=== PATIENT | male | born 1980 | race Caucasian/White ===

== ENCOUNTER 2016-07-31 11:49 | Inpatient (IN) | payer OTHER ==
[~2016-07-31] VITALS: Ht 190.5 cm; Wt 171.0 kg
[~2016-07-31 11:49] MED LIST: 1-ME1LIQ PO; HYDR-2768 PO; LISI40TA PO; METF500 PO; MULTCHW12 PO; VITA200017 PO
[2016-07-31 11:50] VITALS: BP 211/112; PULSE 85; RESP 20; TEMP 98.4; O2SAT 98
--- NOTE | 2016-07-31 11:58 | PD ---
Physical Exam Date Seen by Provider: July 31, 2016 Time Seen by Provider: 11:56 Narrative 36 year old male presents to the emergency department for evaluation of left great toe infection. He states he went to Urgent Care on Tuesday and was given Clindamycin and Bactrim and has been taking them as prescribed. Symptoms are worsening. No fevers. Patient has history of DM. Vital signs reviewed. Patient seen in triage, awaiting bed placement. Data Data Last Documented VS Vital Signs Date Time Temp Pulse Resp B/P Pulse Ox O2 Delivery O2 Flow Rate FiO2 07/31/16 11:50 98.4 85 20 211/112 98 Room Air MDM Supervised Visit with MARCUS: Zahida Peralta July 31, 2016 11:58
[2016-07-31] MEDS ORDERED: METF500T PO (12:08)
[2016-07-31 12:22] LABS: BASOPHIL # 0.1 TH/MM3 (0-0.2); BASOPHIL % 0.8 % (0.0-2.0); EOSINOPHIL # 0.2 TH/MM3 (0-0.4); EOSINOPHIL % 1.8 % (0.0-4.0); HEMATOCRIT 42.8 % (39.0-51.0); HEMO FLAGS DIFF FINAL; LYMPH % 24.4 % (9.0-44.0); LYMPHOCYTE # 2.9 TH/MM3 (1.0-4.8); MEAN CELL VOLUME 81.1 FL (80.0-100.0); MEAN CORPUSCULAR HEMOGLOBIN 28.1 PG (27.0-34.0); MEAN CORPUSCULAR HGB CONC 34.6 % (32.0-36.0); MONO % 6.2 % (0.0-8.0); NEUT % 66.8 % (16.0-70.0); PLATELET COUNT 444 TH/MM3 (150-450); RED BLOOD COUNT 5.27 MIL/MM3 (4.50-5.90); RED CELL DISTRIBUTION WIDTH 13.4 % (11.6-17.2)
[2016-07-31 12:37] LABS: ALT (GPT) 54 U/L (12-78); ANION GAP 7 MEQ/L (5-15); AST (GOT) 36 U/L (15-37); BLOOD UREA NITROGEN 14 MG/DL (7-18); CHLORIDE 103 MEQ/L (98-107); GLOMERULAR FILTRATION RATE 93 ML/MIN (>89); POTASSIUM 4.7 MEQ/L (3.5-5.1); SODIUM (NA) 136 MEQ/L (136-145)
[2016-07-31 12:38] LABS: ALKALINE PHOSPHATASE 104 U/L (45-117); TOTAL BILIRUBIN ADULT 0.3 MG/DL (0.2-1.0)
--- NOTE | 2016-07-31 12:52 | RADRPT ---
EXAM DATE/TIME: 07/31/2016 12:31 [facility] COMPARISON: No previous studies available for comparison. INDICATIONS : Patient complains of pain in left great toe. States may have possible infection. Pain and swelling to left great toe. MEDICAL HISTORY : None. SURGICAL HISTORY : None. ENCOUNTER: Initial ACUITY: 1 day PAIN SCORE: 5/10 LOCATION: Left Foot FINDINGS: Three view examination of the left foot demonstrates no dislocation or fracture. There is soft tissu e swelling over the first digit. The tarsal bones appear intact. The interphalangeal and metatarsoph alangeal joints are intact. The calcaneus is intact. Bony mineralization is normal. CONCLUSION: Soft tissue swelling over the first digit with no destructive change or radiopaque fo reign body. Fabricio Bautista MD on July 31, 2016 at 12:48 Board Certified Radiologist. This report was verified electronically.
--- NOTE | 2016-07-31 14:25 | PD ---
HPI Chief Complaint: Wound/Suture/Staple Re-Check Time Seen by Provider: 14:17 Travel History International Travel<30 days: No Contact w/Intl Traveler<30days: No Traveled to known affect area: No History of Present Illness HPI This is a 36-year-old male with history of hypertension, diabetes who presents for evaluation of left great toe pain. He reports that 3 weeks ago he developed an ulcer on the left toe. He reports over the past week he developed redness and pain associated with the toe. He was seen at an urgent care center 5 days ago and prescribed Bactrim and clindamycin. Symptoms worsened and he returned to the urgent care center today who referred him here for further treatment. He denies any trauma to the toe. He denies any fevers, chills, leg pain. He has no other complaints at this time. [facility] Past Medical History Cardiovascular Problems: Yes Diabetes: Yes Patient Takes Glucophage: Yes Hypertension: Yes Immunizations Current: Yes Influenza Vaccination: No Past Surgical History Surgical History: No Previous Surgery Social History Alcohol Use: No Tobacco Use: No Substance Use: No Allergies-Medications (Allergen,Severity, Reaction): Coded Allergies: No Known Allergies (Unverified , 07/31/16) Reported Meds & Prescriptions Reported Meds & Active Scripts Active Reported Metformin (Metformin HCl) 500 Mg Tab 500 Mg PO DAILY With a meal Review of Systems Except as stated in HPI: all other systems reviewed are Neg Physical Exam Narrative GENERAL: Well-developed well-nourished male in no acute distress SKIN: Warm and dry. Significant ulceration of the skin is noted to be dorsal and plantar aspect of the left great toe with associated erythema, some purulent drainage noted. Generalized tenderness to palpation. No proximal streaking. HEAD: Atraumatic. Normocephalic. EYES: Pupils equal and round. No scleral icterus. No injection or drainage. ENT: No nasal bleeding or discharge. Mucous membranes pink and moist. NECK: Trachea midline. No JVD. CARDIOVASCULAR: Regular rate and rhythm. No murmur appreciated. RESPIRATORY: No accessory muscle use. Clear to auscultation. Breath sounds equal bilaterally. GASTROINTESTINAL: Abdomen soft, non-tender, nondistended. MUSCULOSKELETAL: No obvious deformities. Skin as noted above. 2+ dorsalis pedis, posterior tibial pulses. No inguinal lymphadenopathy. NEUROLOGICAL: Awake and alert. No obvious cranial nerve deficits. Motor grossly within normal limits. Normal speech. Data Data Last Documented VS Vital Signs Date Time Temp Pulse Resp B/P Pulse Ox O2 Delivery O2 Flow Rate FiO2 07/31/16 11:50 98.4 85 20 211/112 98 Room Air Orders Complete Blood Count With Diff (07/31/16 12:00) Comprehensive Metabolic Panel (07/31/16 12:00) Westergren Sedimentation Rate (07/31/16 12:00) C-Reactive Protein (Crp) (07/31/16 12:00) Foot, Complete ([id number]) (07/31/16 ) Lactic Acid Sepsis Protocol (07/31/16 14:29) Blood Culture (07/31/16 14:29) Wound Culture And Gram Stain (07/31/16 14:29) Iv Access Insert/Monitor (07/31/16 14:29) Sodium Chlor 0.9% 1000 Ml Inj (Ns 1000 M (07/31/16 14:29) Labetalol Inj (Trandate Inj) (07/31/16 14:30) Vancomycin Inj (Vancomycin Inj) (07/31/16 14:30) Piperacil-Tazo 3.375 Gm Premix (Zosyn 3. (07/31/16 14:30) Labs Laboratory Tests Test 07/31/16 07/31/16 12:00 14:35 White Blood Count 12.0 TH/MM3 Red Blood Count 5.27 MIL/MM3 Hemoglobin 14.8 GM/DL Hematocrit 42.8 % Mean Corpuscular Volume 81.1 FL Mean Corpuscular Hemoglobin 28.1 PG Mean Corpuscular Hemoglobin 34.6 % Concent Red Cell Distribution Width 13.4 % Platelet Count 444 TH/MM3 Mean Platelet Volume 7.6 FL Neutrophils (%) (Auto) 66.8 % Lymphocytes (%) (Auto) 24.4 % Monocytes (%) (Auto) 6.2 % Eosinophils (%) (Auto) 1.8 % Basophils (%) (Auto) 0.8 % Neutrophils # (Auto) 8.0 TH/MM3 Lymphocytes # (Auto) 2.9 TH/MM3 Monocytes # (Auto) 0.7 TH/MM3 Eosinophils # (Auto) 0.2 TH/MM3 Basophils # (Auto) 0.1 TH/MM3 CBC Comment DIFF FINAL Differential Comment Erythrocyte Sedimentation Rate 33 mm/hr Sodium Level 136 MEQ/L Potassium Level 4.7 MEQ/L Chloride Level 103 MEQ/L Carbon Dioxide Level 26.0 MEQ/L Anion Gap 7 MEQ/L Blood Urea Nitrogen 14 MG/DL Creatinine 0.93 MG/DL Estimat Glomerular Filtration 93 ML/MIN Rate Random Glucose 249 MG/DL Calcium Level 9.0 MG/DL Total Bilirubin 0.3 MG/DL Aspartate Amino Transf 36 U/L (AST/SGOT) Alanine Aminotransferase 54 U/L (ALT/SGPT) Alkaline Phosphatase 104 U/L C-Reactive Protein 4.00 MG/DL Total Protein 8.1 GM/DL Albumin 3.3 GM/DL Lactic Acid Level 1.3 mmol/L [facility] Medical Decision Making Medical Screen Exam Complete: Yes Emergency Medical Condition: Yes Medical Record Reviewed: Yes Differential Diagnosis Diabetic foot ulcer, cellulitis failed outpatient therapy, osteomyelitis, necrotizing fasciitis Narrative Course 36-year-old male with diabetes presents with left great toe infection, he is ulcerations for 3 weeks, worsening pain and redness for 1 week, worsening despite 5 days treatment of Bactrim and clindamycin. Ultimately the patient is being admitted for cellulitis fell outpatient therapy, diabetic foot ulcer. He was hypertensive initially in triage. He was given IV labetalol and his blood pressures come down to 146/76. He was given broad-spectrum antibiotics, IV fluids. Discussed with Dr. Rahman who is agreeable with admission. Diagnosis Primary Impression: Cellulitis of left foot Additional Impression: Diabetic foot ulcer Qualified Code: E13.621 - Diabetic ulcer of toe of left foot associated with diabetes mellitus of other type, unspecified ulcer stage Admitting Information Admitting Physician Requests: Admit Charles Rojo July 31, 2016 14:25
[2016-07-31] MEDS ORDERED: SODIUM CHLOR 0.9% 1000 ML INJ 1,000 ML IV SCH (14:29)
[2016-07-31] MEDS ORDERED: LABETALOL HCL 100 MG/20 ML VIAL IV PUSH ONE (14:30)
[2016-07-31] MEDS ORDERED: PIPERACIL-TAZO 3.375 GM PREMIX 50 ML IV ONE (14:30)
[2016-07-31] MEDS ORDERED: VANCOMYCIN INJ 1,000 MG in SODIUM CHLOR 0.9% 250 ML INJ 250 ML IV ONE (14:30)
[2016-07-31] MEDS ORDERED: GLUCAGON 1 MG/ML VIAL OTHER PRN (17:30)
[2016-07-31] MEDS ORDERED: DEXTROSE 50% IN WATER 50 ML VIAL(D50) IV PUSH PRN (17:30)
[2016-07-31 17:54] VITALS: BP_SYST 67; PULSE 80
--- NOTE | 2016-07-31 18:04 | HHI.HP ---
HPI Service [facility] Hospitalists Primary Care Physician Non-Staff Admission Diagnosis cellulitis Failed outpatient therapy, diabetic foot ulcer Chief Complaint: toe infection Travel History International Travel<30 Days: No Contact w/Intl Traveler <30 Da: No Traveled to Known Affected Are: No History of Present Illness Pt is 36 yo male who presents with left great toe infection. Says he just joined with [facility] [place] [facility] and has not seen his pcp. Reports being diagnosed last yr with dm 2 but doesn't monitor it. 3 weeks ago he noticed a dime size ulceration on planter aspect of left great toe. This was in the area of a callus. Then earlier this week he notice redness on dorsal aspect of the great toe 4 days ago. He was started on bactrim and clinda. Then skin sloughed off and dorsal aspect ulcerated as well. no f/c or rigors. no n/v/d reported. Review of Systems Other left great toe infection/ulcers Past Family Social History Past Medical History dm 2. dx last yr ...doesn't monitor htn. stopped his meds months ago. obesity broke left tib/fib..no hardware Reported Medications Metformin (Metformin HCl) 500 Mg Tab 500 Mg PO DAILY With a meal stopped an unknown dose of lisinipril months ago. ran out. Allergies: Coded Allergies: No Known Allergies (Unverified , 07/31/16) Family History dm Social History no etoh/tob Physical Exam Vital Signs heent neg heart reg lung cta abd /snt ext chronic ant barajas redness from prior fx left left great toe with plantar callous with dime size ulceration. dorsally ulcerated and erythematous purelent discharge. Vital Signs Date Time Temp Pulse Resp B/P Pulse Ox O2 Delivery O2 Flow Rate FiO2 07/31/16 11:50 98.4 85 20 211/112 98 Room Air Laboratory Laboratory Tests Test 07/31/16 07/31/16 12:00 14:35 White Blood Count 12.0 Red Blood Count 5.27 Hemoglobin 14.8 Hematocrit 42.8 Mean Corpuscular Volume 81.1 Mean Corpuscular Hemoglobin 28.1 Mean Corpuscular Hemoglobin 34.6 Concent Red Cell Distribution Width 13.4 Platelet Count 444 Mean Platelet Volume 7.6 Neutrophils (%) (Auto) 66.8 Lymphocytes (%) (Auto) 24.4 Monocytes (%) (Auto) 6.2 Eosinophils (%) (Auto) 1.8 Basophils (%) (Auto) 0.8 Neutrophils # (Auto) 8.0 Lymphocytes # (Auto) 2.9 Monocytes # (Auto) 0.7 Eosinophils # (Auto) 0.2 Basophils # (Auto) 0.1 CBC Comment DIFF FINAL Differential Comment Erythrocyte Sedimentation Rate 33 Sodium Level 136 Potassium Level 4.7 Chloride Level 103 Carbon Dioxide Level 26.0 Anion Gap 7 Blood Urea Nitrogen 14 Creatinine 0.93 Estimat Glomerular Filtration 93 Rate Random Glucose 249 Calcium Level 9.0 Total Bilirubin 0.3 Aspartate Amino Transf 36 (AST/SGOT) Alanine Aminotransferase 54 (ALT/SGPT) Alkaline Phosphatase 104 C-Reactive Protein 4.00 Total Protein 8.1 Albumin 3.3 Lactic Acid Level 1.3 Date/Time Procedure Status Source Growth 07/31/16 14:35 Gram Stain Received Wound Foot Pending 07/31/16 14:35 Wound Culture Received Wound Foot Pending 07/31/16 14:30 Aerobic Blood Culture Received Blood Peripheral Pending 07/31/16 14:30 Anaerobic Blood Culture Received Blood Peripheral Pending Result Diagram: 07/31/16 1200 07/31/16 1200 Assessment and Plan Problem List: (1) Diabetic foot ulcer Status: Acute Plan: Pt is 36 yo dm 2 and htn. developed left great toe plantar ulcer then dorsally ulcerated with cellulitis. concern for osteo and needs ruled out. failed bactrim and clinda severe htn on presentation. ED initiated iv zosyn/vanco blood and wound cx taken consult podiatry regarding the toe ulcerations mri foot to eval osteo ssi. adjust dm as needed. hgba1c. needs f/u. resume bella and titrate as needed dvt prophylaxis. (2) Cellulitis of left foot Status: Acute Plan: see above (3) DM (diabetes mellitus) Status: Chronic Plan: see above (4) HTN (hypertension) Status: Acute Plan: see above Physician Certification 2 Midnight Certification Type: Admission for Inpatient Services Order for Inpatient Services 3The services are ordered in accordance with Medicare regulations or non- Medicare payer requirements, as applicable. In the case of services not specified as inpatient-only, they are appropriately provided as inpatient services in accordance with the 2-midnight benchmark. Estimated LOS (days): 3 3 days is the estimated time the patient will need to remain in the hospital, assuming treatment plan goals are met and no additional complications. Post-Hospital Plan: Home Problem Qualifiers (1) Diabetic foot ulcer: Qualified Code: E13.621 - Diabetic ulcer of toe of left foot associated with diabetes mellitus of other type, unspecified ulcer stage Duong Branham MD July 31, 2016 18:04
[2016-07-31] MEDS ORDERED: cloNIDine HCL 0.1 MG TAB PO PRN (18:15)
[2016-07-31] MEDS ORDERED: ACETAMINOPHEN 325 MG TAB PO PRN (18:15)
[2016-07-31] MEDS ORDERED: Vancomycin Consult Pharmacy 1 EA OTHER SCH (18:15)
[2016-07-31] MEDS ORDERED: ENALAPRILAT 1.25 MG/ML VIAL IV PUSH PRN (18:15)
[2016-07-31] MEDS ORDERED: ONDANSETRON HCL 4 MG/2 ML VIAL IV PUSH PRN (18:15)
[2016-07-31 18:37] VITALS: BP 138/76; PULSE 88
[2016-07-31] MEDS ORDERED: GADODIAMIDE PF 287 MG/ML 10 ML VIAL (for RAD MRI) IV ONE (19:49)
--- NOTE | 2016-07-31 20:26 | RADRPT ---
EXAM DATE/TIME: 07/31/2016 19:28 [facility] COMPARISON: No previous studies available for comparison. INDICATIONS : Osteomyelitis. CONTRAST: cc Omniscan (gadodiamide) IV MEDICAL HISTORY : Hypertension. Diabetes mellitus type 2. SURGICAL HISTORY : None. ENCOUNTER: Initial ACUITY: 1 day PAIN SCORE: 0/10 LOCATION: Left foot TECHNIQUE: Multiplanar, multisequence MRI examination was performed without contrast and after the intravenous a dministration of gadolinium. FINDINGS: There is abnormal marrow edema and no proximal and distal phalanx of the great associated with an ulc eration and extensive surrounding cellulitis and edema characteristic of osteomyelitis although great toe. The other toes appear intact. No extension to the metatarsals is identified. CONCLUSION: 1. Osteomyelitis of both the proximal and distal phalanx of the great toe associated with an ulcerati on and surrounding cellulitis. There is edema predominantly in the forefoot. No other foci of osteomy elitis identified. No abnormal fluid collections to suggest abscess. Eliezer Long MD on July 31, 2016 at 20:19 Board Certified Radiologist. This report was verified electronically.
[2016-07-31] MEDS: INSULIN ASPART SUPPLEMENTAL SCALE SQ SCH (21:00)
[2016-07-31 21:30] VITALS: BP 135/69; PULSE 83; RESP 18; TEMP 96.6; O2SAT 96
[2016-07-31] MEDS: LISINOPRIL 5 MG TAB PO SCH (21:50)
[2016-07-31] MEDS: VANCOMYCIN INJ 2,000 MG in SODIUM CHLORID 0.9% 500 ML INJ 500 ML IV SCH (21:54)
[2016-07-31] MEDS: PIPERACIL-TAZO 3.375 GM PREMIX 50 ML IV SCH (21:54)
[2016-08-01] VITALS: BP 128/63; PULSE 78; RESP 18; TEMP 96.3; O2SAT 96
[2016-08-01] MEDS: PIPERACIL-TAZO 3.375 GM PREMIX 50 ML IV SCH ×4 (03:08→21:22)
[2016-08-01 04:00] VITALS: BP 139/88; PULSE 77; RESP 18; TEMP 97.1; O2SAT 98
[2016-08-01] MEDS: INSULIN ASPART SUPPLEMENTAL SCALE SQ SCH ×4 (06:02→21:00)
[2016-08-01 07:55] LABS: AUTOMATED NEUTROPHIL # 8.1 TH/MM3 (1.8-7.7); BASOPHIL # 0.1 TH/MM3 (0-0.2); BASOPHIL % 0.7 % (0.0-2.0); EOSINOPHIL # 0.2 TH/MM3 (0-0.4); EOSINOPHIL % 1.6 % (0.0-4.0); HEMATOCRIT 41.8 % (39.0-51.0); HEMO FLAGS DIFF FINAL; LYMPHOCYTE # 2.9 TH/MM3 (1.0-4.8); MEAN CELL VOLUME 82.2 FL (80.0-100.0); MEAN CORPUSCULAR HEMOGLOBIN 27.3 PG (27.0-34.0); MEAN CORPUSCULAR HGB CONC 33.2 % (32.0-36.0); MONO % 6.5 % (0.0-8.0); NEUT % 67.2 % (16.0-70.0); PLATELET COUNT 390 TH/MM3 (150-450); RED BLOOD COUNT 5.08 MIL/MM3 (4.50-5.90); RED CELL DISTRIBUTION WIDTH 13.2 % (11.6-17.2); WHITE BLOOD COUNT 12.1 TH/MM3 (4.0-11.0)
[2016-08-01 08:00] VITALS: BP 133/79; PULSE 81; RESP 20; TEMP 96.6; O2SAT 97
[2016-08-01 08:21] LABS: ANION GAP 7 MEQ/L (5-15); BLOOD UREA NITROGEN 12 MG/DL (7-18); CHLORIDE 104 MEQ/L (98-107); GLOMERULAR FILTRATION RATE 119 ML/MIN (>89); SODIUM (NA) 139 MEQ/L (136-145)
[2016-08-01] MEDS: VANCOMYCIN INJ 2,000 MG in SODIUM CHLORID 0.9% 500 ML INJ 500 ML IV SCH ×2 (08:28→21:23)
[2016-08-01] MEDS: LISINOPRIL 5 MG TAB PO SCH ×2 (08:28→21:23)
--- NOTE | 2016-08-01 11:36 | MB ---
cc: RUTHANN PITTS DPM DATE OF CONSULTATION: 08/01/2016 DATE OF : 1980 REASON FOR CONSULTATION: Left hallux infection. HISTORY OF PRESENT ILLNESS: The patient is a 36 year-old male who states that he has a three week old wound to the left toe. He has a history of two years of diabetes but only obtained insurance in the last four months. He does not monitor his blood sugar. He has provided no treatment to his left toe and continued to work on it. He was started on Bactrim and clinda four days ago as an outpatient. No nausea, vomiting, fever, diarrhea, chills. REVIEW OF SYSTEMS: Six point review of systems unremarkable. PAST MEDICAL HISTORY: 1. Diabetes x2 years. 2. Hypertension. He stopped his meds about a month ago. 3. Broken tibia, left tib-fib. 4. Obesity. REPORTED MEDICATIONS: Metformin. ALLERGIES: NKDA. SOCIAL HISTORY: Denies alcohol, tobacco. PHYSICAL EXAMINATION: Dorsal ulceration 1 x 2 cm at the left hallux, as well as a plantar hallux ulceration of 1.5 x 0.5 with 0.5 in depth. There is serous drainage. There is no crepitus or inflammation, no pain on range of motion. Mild erythema at the dorsal aspect of the toe. There is some chronic swelling on the left hallux. There is no streaking noted. Hair growth distally DP and PT palpable. WBC on 08/01/2016 of 12.1, RBC of 5.08, H&H 13.9 and 41.8. ESR 33. IMAGING STUDIES Left foot MRI completed 07/31/2016 with osteomyelitis extending through the proximal and distal phalanx with surrounding erythema. This was evaluated by Dr. Long on July 31, 2016. ASSESSMENT/PLAN 1. Left hallux osteomyelitis. 2. Left hallux ulceration. 3. DM with neuropathy. I recommended a left hallux amputation with possible proximal first ray amputation. I did discuss the risks and benefits, pros and cons with the patient including modification of shoe gear, custom inserts as well as deviating the left second digit, possible additional surgery and future ulcerations. The patient stated that he wanted to consider IV antibiotics and will discuss with his family. I did discuss that he will need daily IV antibiotics, walking boot to offload the left foot as well as weekly wound care with podiatry. All questions were answered. Will continue to follow the patient while in-house, pending his decision on amputation versus IV antibiotics. Dr. Meier will be assuming coverage on 08/02/2016. Ruthann Pitts DPM SR/STEPHANIE /10:13 AM /11:26 AM
[2016-08-01 12:00] VITALS: BP 142/91; PULSE 86; RESP 20; TEMP 96.7; O2SAT 96
--- NOTE | 2016-08-01 12:50 | HHI.PR ---
Subjective Remarks feels the toe is less angry and red. Objective Vitals heart reg lung cta abd s/nt ext left great toe swollen. less angry red, dorsal and plantar ulceration. drainage resolving. Vital Signs Date Time Temp Pulse Resp B/P Pulse Ox O2 Delivery O2 Flow Rate FiO2 08/01/16 12:00 96.7 86 20 142/91 96 08/01/16 08:00 96.6 81 20 133/79 97 08/01/16 04:00 97.1 77 18 139/88 98 08/01/16 00:00 96.3 78 18 128/63 96 07/31/16 21:30 96.6 83 18 135/69 96 07/31/16 18:37 88 138/76 07/31/16 17:54 80 67/ Result Diagram: 08/01/16 0700 08/01/16 0700 A/P Problem List: (1) Osteomyelitis Status: Acute Plan: Pt is 36 yo dm 2 and htn. developed left great toe plantar ulcer then dorsally ulcerated with cellulitis. mri confirmed osteomyelitis. failed bactrim and clinda severe htn on presentation. ED initiated iv zosyn/vanco. continue until wound cx available and modify as needed blood and wound cx taken consulted podiatry ssi. adjust dm as needed. hgba1c. needs f/u. resume bella and titrate as needed dvt prophylaxis. (2) Diabetic foot ulcer Status: Acute Plan: see above (3) Cellulitis of left foot Status: Acute Plan: see above (4) DM (diabetes mellitus) Status: Chronic Plan: see above (5) HTN (hypertension) Status: Acute Plan: see above Problem Qualifiers (1) Diabetic foot ulcer: Qualified Code: E13.621 - Diabetic ulcer of toe of left foot associated with diabetes mellitus of other type, unspecified ulcer stage Duong Branham MD August 01, 2016 12:50
[2016-08-01 16:00] VITALS: BP 138/105; PULSE 84; RESP 20; TEMP 97.4; O2SAT 97
[2016-08-01] MEDS ORDERED: PHARMACY ORDERED LAB ONE (20:45)
[2016-08-01 22:57] VITALS: BP 158/86; PULSE 86; RESP 20; TEMP 97.4; O2SAT 96
[2016-08-02] MEDS: PIPERACIL-TAZO 3.375 GM PREMIX 50 ML IV SCH ×4 (02:49→20:56)
[2016-08-02 04:00] VITALS: BP 136/72; PULSE 84; RESP 20; TEMP 97.5; O2SAT 96
[2016-08-02] MEDS: INSULIN ASPART SUPPLEMENTAL SCALE SQ SCH ×4 (07:00→20:59)
[2016-08-02] MEDS: VANCOMYCIN INJ 2,500 MG in SODIUM CHLORID 0.9% 500 ML INJ 500 ML IV SCH ×2 (07:08→18:01)
[2016-08-02 08:14] VITALS: BP 138/94; PULSE 78; RESP 20; TEMP 96.7; O2SAT 97
--- NOTE | 2016-08-02 08:53 | PD.POD ---
Subjective Pain score: 0 Remarks Refusing amp of hallux, wants to try digit salvage options Past Med/Surg/Social History Past Medical History Cardiovascular: REPORTS HX OF: Hypertension Past Surgical History HEENT: DENIES HX OF: Cataract extraction, Dental surgery, Laryngectomy, Tonsillectomy, Other head surgery, Other eye surgery, Other ear surgery, Other nasal surgery, Other throat surgery Endocrine: DENIES HX OF: Parathyroidectomy, Thyroid surgery, Other endocrine surgery Respiratory: DENIES HX OF: Bronchoscopy, Lobectomy, Other chest surgery Cardiovascular: DENIES HX OF: Angiogram, Angioplasty, CABG surgery, Carotid endarterectomy, Coronary stent, Heart transplant, Pacemaker, Valve replacement, Other cardiac surgery Gastrointestinal: DENIES HX OF: Appendectomy, Cholecystectomy, Colectomy, subtotal, Colectomy, total, Gastric bypass, Hernia repair, Splenectomy, Other GI surgery Genitourinary: DENIES HX OF: Bladder surgery, Kidney stone extraction, Nephrectomy, Other surgery Genitourinary - male: DENIES HX OF: Prostatectomy, TURP, Vasectomy Musculoskeletal: DENIES HX OF: Joint replacement, Other musculoskeletal srg Integumentary: DENIES HX OF: Skin cancer removal, Other integumentary surg Neurologic: DENIES HX OF: Craniotomy, Spinal surgery, Other neurologic surgery Breast: DENIES HX OF: Breast biopsy, Lumpectomy, Mastectomy, bilateral, Mastectomy, left, Mastectomy, right, Other breast surgery Social History Smoking Status: Never Smoker Objective Vital Signs Vital Signs Date Time Temp Pulse Resp B/P Pulse Ox O2 Delivery O2 Flow Rate FiO2 08/02/16 08:14 96.7 78 20 138/94 97 08/02/16 04:00 97.5 84 20 136/72 96 08/01/16 22:57 97.4 86 20 158/86 96 08/01/16 16:00 97.4 84 20 138/105 97 08/01/16 12:00 96.7 86 20 142/91 96 Coded Allergies: No Known Allergies (Unverified , 07/31/16) Medications and IVs Administered Medications Medications (Trade) Dose Ordered Sig/Juan Luis Route PRN Reason Start Time Stop Time Status Last Admin Dose Admin Piperacillin Sod/ Tazobactam Sod (Zosyn 3.375 Gm Premix) 50 ml @ 100 mls/hr Q6H IV 07/31/16 21:00 08/02/16 02:49 Lisinopril 5 mg 5 mg Q12HR PO 07/31/16 21:00 08/01/16 21:23 Vancomycin HCl/ Sodium Chloride (Vancomycin Inj/ NS 500 ml Inj) 525 ml @ 250 mls/hr Q12H IV 08/02/16 06:00 08/02/16 07:08 Other Results Laboratory Tests Test 07/31/16 08/01/16 12:00 07:00 White Blood Count 12.0 TH/MM3 12.1 TH/MM3 Red Blood Count 5.27 MIL/MM3 5.08 MIL/MM3 Hemoglobin 14.8 GM/DL 13.9 GM/DL Hematocrit 42.8 % 41.8 % Mean Corpuscular Volume 81.1 FL 82.2 FL Mean Corpuscular Hemoglobin 28.1 PG 27.3 PG Mean Corpuscular Hemoglobin 34.6 % 33.2 % Concent Red Cell Distribution Width 13.4 % 13.2 % Platelet Count 444 TH/MM3 390 TH/MM3 Mean Platelet Volume 7.6 FL 7.8 FL Neutrophils (%) (Auto) 66.8 % 67.2 % Lymphocytes (%) (Auto) 24.4 % 24.0 % Monocytes (%) (Auto) 6.2 % 6.5 % Eosinophils (%) (Auto) 1.8 % 1.6 % Basophils (%) (Auto) 0.8 % 0.7 % Neutrophils # (Auto) 8.0 TH/MM3 8.1 TH/MM3 Lymphocytes # (Auto) 2.9 TH/MM3 2.9 TH/MM3 Monocytes # (Auto) 0.7 TH/MM3 0.8 TH/MM3 Eosinophils # (Auto) 0.2 TH/MM3 0.2 TH/MM3 Basophils # (Auto) 0.1 TH/MM3 0.1 TH/MM3 CBC Comment DIFF FINAL DIFF FINAL Differential Comment Erythrocyte Sedimentation Rate 33 mm/hr Laboratory Tests Test 07/31/16 07/31/16 08/01/16 12:00 14:35 07:00 Sodium Level 136 MEQ/L 139 MEQ/L Potassium Level 4.7 MEQ/L 4.0 MEQ/L Chloride Level 103 MEQ/L 104 MEQ/L Carbon Dioxide Level 26.0 MEQ/L 28.0 MEQ/L Anion Gap 7 MEQ/L 7 MEQ/L Blood Urea Nitrogen 14 MG/DL 12 MG/DL Creatinine 0.93 MG/DL 0.75 MG/DL Estimat Glomerular Filtration 93 ML/MIN 119 ML/MIN Rate Random Glucose 249 MG/DL 154 MG/DL Calcium Level 9.0 MG/DL 8.9 MG/DL Total Bilirubin 0.3 MG/DL Aspartate Amino Transf 36 U/L (AST/SGOT) Alanine Aminotransferase 54 U/L (ALT/SGPT) Alkaline Phosphatase 104 U/L C-Reactive Protein 4.00 MG/DL Total Protein 8.1 GM/DL Albumin 3.3 GM/DL Lactic Acid Level 1.3 mmol/L Microbiology Date/Time Procedure Status Source Growth 07/31/16 14:10 Aerobic Blood Culture - Preliminary Resulted Blood Peripheral NO GROWTH IN 1 DAY 07/31/16 14:10 Anaerobic Blood Culture - Preliminary Resulted Blood Peripheral NO GROWTH IN 1 DAY 07/31/16 14:30 Aerobic Blood Culture - Preliminary Resulted Blood Peripheral NO GROWTH IN 1 DAY 07/31/16 14:30 Anaerobic Blood Culture - Preliminary Resulted Blood Peripheral NO GROWTH IN 1 DAY 07/31/16 14:35 Gram Stain - Final Resulted Wound Foot 07/31/16 14:35 Wound Culture - Preliminary Resulted Gram Negative Marky Last 72 hours Impressions Foot X-Ray 07/31/16 0000 Signed Impressions: Service Date/Time: Sunday, July 31, 2016 12:31 - CONCLUSION: Soft tissue swelling over the first digit with no destructive change or radiopaque foreign body. Fabricio Bautista MD Foot MRI 07/31/16 0000 Signed Impressions: Service Date/Time: Sunday, July 31, 2016 19:28 - CONCLUSION: 1. Osteomyelitis of both the proximal and distal phalanx of the great toe associated with an ulceration and surrounding cellulitis. There is edema predominantly in the forefoot. No other foci of osteomyelitis identified. No abnormal fluid collections to suggest abscess. Eliezer Long MD Physical Exam Remarks Dorsal ulceration 1 x 2 cm at the left hallux, as well as a plantar hallux ulceration of 1.5 x 0.5 with 0.5 in depth. There is serous drainage. There is no crepitus or inflammation, no pain on range of motion. Mild erythema at the dorsal aspect of the toe. There is some chronic swelling on the left hallux. There is no streaking noted. Hair growth distally DP and PT palpable. Assessment & Plan A/P Left hallux ulcer OM with cellulitis. Will proceed with bone biopsy and ulcer debridement tomorrow. Will need intermediate accountant IV ABX once OM and bacteria confirmed. Explained with poor DM control and the extent and the extent of infection; risks of hallux amp may be needed. He does not want amp at this point. Will attempt digit salvage, NPO for tomorrow surgery. Conor Meier DPM August 02, 2016 08:53
[2016-08-02] MEDS: LISINOPRIL 5 MG TAB PO SCH ×2 (09:10→20:56)
[2016-08-02 11:09] LABS: HEMOGLOBIN A1b 1.9 %; HEMOGLOBIN Ao 83.1 %; HEMOGLOBIN LA1C 1.7 %; HEMOGLOBIN P3 3.7 %
[2016-08-02 12:56] VITALS: BP 167/94; PULSE 82; RESP 20; TEMP 96.6; O2SAT 94
--- NOTE | 2016-08-02 15:31 | HHI.PR ---
Subjective Remarks No new complaints. Objective Vitals Vital Signs Date Time Temp Pulse Resp B/P Pulse Ox O2 Delivery O2 Flow Rate FiO2 08/02/16 12:56 96.6 82 20 167/94 94 08/02/16 08:14 96.7 78 20 138/94 97 08/02/16 04:00 97.5 84 20 136/72 96 08/01/16 22:57 97.4 86 20 158/86 96 08/01/16 16:00 97.4 84 20 138/105 97 08/01/16 08/01/16 08/02/16 15:00 23:00 07:00 Intake Total 480 ml Balance 480 ml Intake Oral 480 ml # Voids 3 1 # Bowel Movements 1 Result Diagram: 08/01/16 0708/01/16 07 Other Results Laboratory Tests Test 08/01/16 08/01/16 07:00 21:40 White Blood Count 12.1 TH/MM3 Red Blood Count 5.08 MIL/MM3 Hemoglobin 13.9 GM/DL Hematocrit 41.8 % Mean Corpuscular Volume 82.2 FL Mean Corpuscular Hemoglobin 27.3 PG Mean Corpuscular Hemoglobin 33.2 % Concent Red Cell Distribution Width 13.2 % Platelet Count 390 TH/MM3 Mean Platelet Volume 7.8 FL Neutrophils (%) (Auto) 67.2 % Lymphocytes (%) (Auto) 24.0 % Monocytes (%) (Auto) 6.5 % Eosinophils (%) (Auto) 1.6 % Basophils (%) (Auto) 0.7 % Neutrophils # (Auto) 8.1 TH/MM3 Lymphocytes # (Auto) 2.9 TH/MM3 Monocytes # (Auto) 0.8 TH/MM3 Eosinophils # (Auto) 0.2 TH/MM3 Basophils # (Auto) 0.1 TH/MM3 CBC Comment DIFF FINAL Differential Comment Sodium Level 139 MEQ/L Potassium Level 4.0 MEQ/L Chloride Level 104 MEQ/L Carbon Dioxide Level 28.0 MEQ/L Anion Gap 7 MEQ/L Blood Urea Nitrogen 12 MG/DL Creatinine 0.75 MG/DL Estimat Glomerular Filtration 119 ML/MIN Rate Random Glucose 154 MG/DL Hemoglobin A1c 8.1 % Calcium Level 8.9 MG/DL Vancomycin Level Trough 5.2 MCG/ML Imaging Last Impressions Foot X-Ray 07/31/16 0000 Signed Impressions: Service Date/Time: Sunday, July 31, 2016 12:31 - CONCLUSION: Soft tissue swelling over the first digit with no destructive change or radiopaque foreign body. Fabricio Bautista MD Foot MRI 07/31/16 0000 Signed Impressions: Service Date/Time: Sunday, July 31, 2016 19:28 - CONCLUSION: 1. Osteomyelitis of both the proximal and distal phalanx of the great toe associated with an ulceration and surrounding cellulitis. There is edema predominantly in the forefoot. No other foci of osteomyelitis identified. No abnormal fluid collections to suggest abscess. Eliezer Long MD Objective Remarks General: NAD, AAOx3 Chest: CTA Cardiac: Regular Abd: +BS, soft ND/NT Ext: Left great toe swollen, erythema reportedly improving. Dorsal and plantar ulceration. A/P Problem List: (1) Osteomyelitis Status: Acute Plan: - Pt is 36 yo male with Type 2 DM and htn - Pt developed left great toe plantar ulcer then dorsally ulcerated with cellulitis. - MRI confirmed osteomyelitis of both the proximal and distal phalanx of the great toe associated with an ulceration and surrounding cellulitis. There is edema predominantly in the forefoot. No other foci of osteomyelitis identified. No abnormal fluid collections to suggest abscess. - Pt failed outpt treatment with Bactrim and Clinda - ED initiated iv Zosyn/Vanco. which was continued until wound cx available. Wound culture resulted in Acinetobacter Baumannii/Maemol - Blood culture with NGTD - Podiatry following and pt is planned for bone biopsy and ulcer debridement tomorrow. - Pt will need improved blood sugar control for wound healing, Hgb A1C 8/1% - Pt currently on NovoLog SSI - DVT prophylaxis with SCDs (2) Diabetic foot ulcer Status: Acute Plan: - See above (3) Cellulitis of left foot Status: Acute Plan: - See above (4) DM (diabetes mellitus) Status: Chronic Plan: - Pt will need improved diabetic control - Hgb A1C is 8/1% - NovoLog SSI - Accu checks - Pt is on Metformin 500mg po daily as an outpt (5) HTN (hypertension) Status: Acute Plan: - Pts BP was significantly elevated at admission. - increase lisinopril to 10mg BID - prn catapress, prn IV vasotec - observe Assessment and Plan Patient examined. Assessment and plan formulated with Katt Harvey PA-C. I agree with the above. Will d/w Dr. Meier postoperative. - Pt to undergo bone bx and ulcer debridemfent in the AM 08/03/16 Suspect pt remains at risking for requiring great toe amputation Ultimately adequate control of pt's DM in the outpt setting will be of churchill importance. Problem Qualifiers (1) Diabetic foot ulcer: Qualified Code: E13.621 - Diabetic ulcer of toe of left foot associated with diabetes mellitus of other type, unspecified ulcer stage (2) DM (diabetes mellitus): Katt Copeland August 02, 2016 15:31 Fantasma Razo DO August 03, 2016 00:35
[2016-08-02 17:04] VITALS: BP 174/95; PULSE 89; RESP 20; TEMP 97.9; O2SAT 98
[2016-08-02] MEDS ORDERED: PHARMACY ORDERED LAB ONE (17:45)
[2016-08-02 21:03] VITALS: BP 164/89; PULSE 76; RESP 18; TEMP 98.5; O2SAT 97
[2016-08-03 00:27] VITALS: BP 151/70; PULSE 98; RESP 20; TEMP 98.1; O2SAT 97
[2016-08-03] MEDS: PIPERACIL-TAZO 3.375 GM PREMIX 50 ML IV SCH ×4 (03:22→20:50)
[2016-08-03 04:00] VITALS: BP 139/86; PULSE 83; RESP 20; TEMP 97.2; O2SAT 97
[2016-08-03] MEDS: VANCOMYCIN INJ 2,000 MG in SODIUM CHLORID 0.9% 500 ML INJ 500 ML IV SCH ×2 (04:28→17:25)
[2016-08-03] MEDS: INSULIN ASPART SUPPLEMENTAL SCALE SQ SCH ×4 (06:03→20:51)
[2016-08-03] MEDS ORDERED: METOPROLOL TARTRATE 25 MG TAB PO PRN (08:15)
[2016-08-03] MEDS ORDERED: LACTATED RINGER'S 1000 ML IV PRN (08:15)
[2016-08-03] MEDS ORDERED: CHLORHEXIDINE GLUCONATE 2 % 1 PACK (2 CLOTHS) TOPICAL PRN (08:15)
[2016-08-03] MEDS ORDERED: POVIDONE IODINE 5% (ANTISEPSIS KIT) 4 APPLICATIONS EACH NARE PRN (08:15)
[2016-08-03] MEDS ORDERED: INSULIN HUMAN REGULAR 1,000 UNITS/10 ML VIAL SQ PRN (08:15)
[2016-08-03] MEDS ORDERED: SODIUM CHLORID 0.9% 500 ML IV PRN (08:15)
[2016-08-03 08:18] VITALS: BP 142/87; PULSE 80; RESP 20; TEMP 98.3; O2SAT 97
[2016-08-03] MEDS: LISINOPRIL 10 MG TAB PO SCH ×2 (08:26→20:49)
--- NOTE | 2016-08-03 09:37 | HHI.PR ---
Subjective Remarks No new complaints. Pt reports that pain is controlled He is planned for surgical intervention this afternoon Objective Vitals Vital Signs Date Time Temp Pulse Resp B/P Pulse Ox O2 Delivery O2 Flow Rate FiO2 08/03/16 08:18 98.3 80 20 142/87 97 08/03/16 04:00 97.2 83 20 139/86 97 08/03/16 04:00 Room Air 08/03/16 00:27 98.1 98 20 151/70 97 08/03/16 00:00 Room Air 08/02/16 21:03 98.5 76 18 164/89 97 08/02/16 20:00 Room Air 08/02/16 17:04 97.9 89 20 174/95 98 08/02/16 12:56 96.6 82 20 167/94 94 08/02/16 08/02/16 08/03/16 15:00 23:00 07:00 Intake Total 480 ml 550 ml Balance 480 ml 550 ml Intake Oral 480 ml IV Total 550 ml # Voids 2 3 # Bowel Movements 1 Result Diagram: 08/01/16 0700 08/01/16 0700 Other Results Laboratory Tests Test 08/01/16 08/02/16 21:40 18:00 Vancomycin Level Trough 5.2 MCG/ML 13.8 MCG/ML Imaging Last Impressions Foot X-Ray 07/31/16 0000 Signed Impressions: Service Date/Time: Sunday, July 31, 2016 12:31 - CONCLUSION: Soft tissue swelling over the first digit with no destructive change or radiopaque foreign body. Fabricio Bautista MD Foot MRI 07/31/16 0000 Signed Impressions: Service Date/Time: Sunday, July 31, 2016 19:28 - CONCLUSION: 1. Osteomyelitis of both the proximal and distal phalanx of the great toe associated with an ulceration and surrounding cellulitis. There is edema predominantly in the forefoot. No other foci of osteomyelitis identified. No abnormal fluid collections to suggest abscess. Eliezer Long MD Objective Remarks General: NAD, AAOx3 Chest: CTA Cardiac: Regular Abd: +BS, soft ND/NT Ext: Left foot bandages are c/d/i A/P Problem List: (1) Osteomyelitis Status: Acute Plan: - Pt is 36 yo male with Type 2 DM and HTN - Pt developed left great toe plantar ulcer then dorsally ulcerated with cellulitis. - MRI confirmed osteomyelitis of both the proximal and distal phalanx of the great toe associated with an ulceration and surrounding cellulitis. There is edema predominantly in the forefoot. No other foci of osteomyelitis identified. No abnormal fluid collections to suggest abscess. - Pt failed outpt treatment with Bactrim and Clinda - ED initiated iv Zosyn/Vanco. which was continued. Wound culture resulted in Acinetobacter Baumannii/Maemol - Blood culture with NGTD - Podiatry following and pt is planned for bone biopsy and ulcer debridement this afternoon - Pt will need improved blood sugar control for wound healing following discharge, Hgb A1C 8/1% - Pt currently on NovoLog SSI - DVT prophylaxis with SCDs (2) Diabetic foot ulcer Status: Acute Plan: - See above (3) Cellulitis of left foot Status: Acute Plan: - See above (4) DM (diabetes mellitus) Status: Chronic Plan: - Pt will need improved diabetic control - Hgb A1C is 8/1% - NovoLog SSI - Accu checks - Pt is on Metformin 500mg po daily as an outpt (5) HTN (hypertension) Status: Acute Plan: - Pts BP was significantly elevated at admission. - increase lisinopril to 10mg BID - prn catapress, prn IV vasotec - observe Assessment and Plan Patient examined. Assessment and plan formulated with Katt Copeland PA-C. I agree with the above. Problem Qualifiers (1) Diabetic foot ulcer: Qualified Code: E13.621 - Diabetic ulcer of toe of left foot associated with diabetes mellitus of other type, unspecified ulcer stage (2) DM (diabetes mellitus): Katt Copeland August 03, 2016 09:37 Fantasma Razo DO August 04, 2016 00:02 (1) Diabetic foot ulcer: Qualified Code: E13.621 - Diabetic ulcer of toe of left foot associated with diabetes mellitus of other type, unspecified ulcer stage (2) DM (diabetes mellitus): Katt Copeland August 03, 2016 09:37
[2016-08-03] MEDS ORDERED: ONDANSETRON HCL 4 MG/2 ML VIAL IV PUSH ONE (12:00)
[2016-08-03] MEDS ORDERED: PROPOFOL 200 MG/20 ML AMP IV ONE (12:00)
[2016-08-03 12:01] VITALS: BP 155/98; PULSE 78; RESP 20; TEMP 98; O2SAT 97
[2016-08-03] MEDS ORDERED: fentaNYL CITRATE 250 MCG/5 ML AMP ONE (13:34)
[2016-08-03] MEDS ORDERED: ACETAMINOPHEN 1000 MG/100 ML VIAL IV ONE (13:34)
[2016-08-03] MEDS ORDERED: MIDAZOLAM HCL 2 MG/2 ML VIAL ONE (13:35)
[2016-08-03] MEDS ORDERED: FAMOTIDINE 20 MG/2 ML VIAL ONE (13:35)
[2016-08-03] MEDS ORDERED: BUPIVACAINE HCL PF 0.25% 30 ML VIAL ONE (13:41)
[2016-08-03] MEDS ORDERED: DO NOT ADM ANY ANTICOAGULANT DRUGS PRN (14:30)
--- NOTE | 2016-08-03 14:39 | HHI.PR ---
Immediate Post Op Note Procedure Date: August 03, 2016 Pre Op Diagnosis: (1) Diabetic foot ulcer (2) Cellulitis of left foot (3) Osteomyelitis Post Op Diagnosis: (1) Diabetic foot ulcer (2) Cellulitis of left foot (3) Osteomyelitis Surgeon: [facility] Administrative Assistant(s): Scrub Procedure: Left hallux ulcer debridement with incision bone cortex Findings: necrosis of skin dorsal and plantar, bone appear hard however ulcer probed to bone Complications: none Specimen(s) removed: proximal phalanx and distal phalanx, bone Cx and Bone for Path Estimated blood loss: less than 30 mL Anesthesia: General, Local Drains: None IVF Patient to: Other Patient Condition: Good Implant/Devices: SEE IMPLANT LOG (if applicable) Date/Time of Procedure: SEE SURGICAL CARE RECORD Conor Gut[facility] August 03, 2016 14:39
[2016-08-03 16:07] VITALS: BP 130/83; PULSE 72; RESP 18; TEMP 96.6; O2SAT 96
[2016-08-03 20:00] VITALS: BP 127/82; PULSE 83; RESP 20; TEMP 98.8; O2SAT 94
[2016-08-04] VITALS (7 sets, daily range): BP systolic 118–164; BP diastolic 70–91; PULSE 69–125; RESP 18–22; TEMP 97.7–100; O2SAT 94–99
[2016-08-04] MEDS: PIPERACIL-TAZO 3.375 GM PREMIX 50 ML IV SCH ×2 (03:00→08:02)
[2016-08-04] MEDS ORDERED: PHARMACY ORDERED LAB ONE ×2 (05:45→17:45)
[2016-08-04] MEDS: VANCOMYCIN INJ 2,000 MG in SODIUM CHLORID 0.9% 500 ML INJ 500 ML IV SCH ×2 (06:00→18:25)
[2016-08-04] MEDS: INSULIN ASPART SUPPLEMENTAL SCALE SQ SCH ×4 (06:19→21:00)
[2016-08-04] MEDS: LISINOPRIL 10 MG TAB PO SCH ×2 (08:03→21:07)
[2016-08-04 08:49] LABS: BICARBONATE 28.3 MEQ/L (21.0-32.0); POTASSIUM 3.8 MEQ/L (3.5-5.1)
--- NOTE | 2016-08-04 10:23 | HHI.PR ---
Subjective Remarks Pt had a low grade temp of 100.0 last night. No new complaints. Post-op pain is controlled. Objective Vitals Vital Signs Date Time Temp Pulse Resp B/P Pulse Ox O2 Delivery O2 Flow Rate FiO2 08/04/16 08:56 98.9 74 19 137/90 96 08/04/16 08:42 97 21 08/04/16 06:09 98.4 72 20 152/91 97 08/04/16 00:00 100.0 125 18 118/70 94 08/03/16 20:00 98.8 83 20 127/82 94 08/03/16 16:07 96.6 72 18 130/83 96 08/03/16 15:30 98.7 70 17 141/78 95 Room Air 08/03/16 15:15 73 16 145/87 93 Room Air 08/03/16 15:00 78 14 151/76 93 Room Air 08/03/16 14:43 98.9 78 14 145/78 93 Nasal Cannula 3 08/03/16 12:01 98.0 78 20 155/98 97 08/03/16 08/03/16 08/04/16 15:00 23:00 07:00 Intake Total 375 ml 720 ml 590 ml Output Total 20 ml Balance 355 ml 720 ml 590 ml Intake Oral 720 ml IV Total 75 ml 240 ml Other 300 ml 350 ml Output Urine Total 0 ml Estimated Blood Loss 20 ml # Voids 2 1 # Bowel Movements 2 0 Result Diagram: 08/01/16 0700 08/04/16 0722 Other Results Laboratory Tests Test 08/02/16 08/04/16 18:00 07:22 Vancomycin Level Trough 13.8 MCG/ML Sodium Level 142 MEQ/L Potassium Level 3.8 MEQ/L Chloride Level 104 MEQ/L Carbon Dioxide Level 28.3 MEQ/L Anion Gap 10 MEQ/L Blood Urea Nitrogen 10 MG/DL Creatinine 0.86 MG/DL Estimat Glomerular Filtration 102 ML/MIN Rate Random Glucose 123 MG/DL Calcium Level 8.6 MG/DL Imaging Last Impressions Foot X-Ray 07/31/16 0000 Signed Impressions: Service Date/Time: Sunday, July 31, 2016 12:31 - CONCLUSION: Soft tissue swelling over the first digit with no destructive change or radiopaque foreign body. Fabricio Bautista MD Foot MRI 07/31/16 0000 Signed Impressions: Service Date/Time: Sunday, July 31, 2016 19:28 - CONCLUSION: 1. Osteomyelitis of both the proximal and distal phalanx of the great toe associated with an ulceration and surrounding cellulitis. There is edema predominantly in the forefoot. No other foci of osteomyelitis identified. No abnormal fluid collections to suggest abscess. Eliezer Long MD Objective Remarks General: NAD, AAOx3 Chest: CTA Cardiac: Regular Abd: +BS, soft ND/NT Ext: Left foot bandages are c/d/i A/P Problem List: (1) Osteomyelitis Status: Acute Plan: - Pt is 36 yo male with Type 2 DM and HTN - Pt developed left great toe plantar ulcer then dorsally ulcerated with cellulitis. - MRI confirmed osteomyelitis of both the proximal and distal phalanx of the great toe associated with an ulceration and surrounding cellulitis. There is edema predominantly in the forefoot. No other foci of osteomyelitis identified. No abnormal fluid collections to suggest abscess. - Pt failed outpt treatment with Bactrim and Clinda - ED initiated iv Zosyn/Vanco. which was continued. - Wound culture resulted in Acinetobacter Baumannii/Maemol - Consult ID - Blood culture with NGTD - Podiatry following - Patient underwent left hallux ulcer debridement with incision bone cortex on . Surgery revealed necrosis of skin dorsal and plantar, bone appear hard however ulcer probed to bone - Surgical cultures and pathology are pending. - Pt will need improved blood sugar control for wound healing following discharge, Hgb A1C 8/1% - Pt currently on NovoLog SSI - DVT prophylaxis with SCDs (2) Diabetic foot ulcer Status: Acute Plan: - See above (3) Cellulitis of left foot Status: Acute Plan: - See above (4) DM (diabetes mellitus) Status: Chronic Plan: - Pt will need improved diabetic control - Hgb A1C is 8.1% - NovoLog SSI - Accu checks - Pt is on Metformin 500mg po daily as an outpt (5) HTN (hypertension) Status: Acute Plan: - Pts BP was significantly elevated at admission. - Cont. Lisinopril 10mg BID - prn Catapres, prn IV Vasotec - observe Assessment and Plan Patient examined. Assessment and plan formulated with Katt Copeland PA-C. I agree with the above. Case d/w Dr. Hardeep. There remains a strong possibility that pt will ultimately require amputation of his toe. Pt wants trial of antibiotics first. Wound culture shows acinetobacter. Will request ID consultation Problem Qualifiers (1) Diabetic foot ulcer: Qualified Code: E13.621 - Diabetic ulcer of toe of left foot associated with diabetes mellitus of other type, unspecified ulcer stage (2) DM (diabetes mellitus): Katt Copeland August 04, 2016 10:23 Fantasma Razo DO August 04, 2016 10:52
[2016-08-04] MEDS: metFORMIN HCL 500 MG TAB PO SCH (11:31)
[2016-08-04] MEDS: cloNIDine HCL 0.1 MG TAB PO PRN (13:00)
--- NOTE | 2016-08-04 13:05 | PD.CONS ---
History of Present Illness Service Infectious disease Consult Requested By Dr Chanel Razo Reason for Consult Evaluate patient with diabetic foot infection, culture with Acinetobacter Primary Care Physician Non-Staff Diagnoses: History of Present Illness Patient seen and examined. Records reviewed. Patient is a 36-year-old male, with diagnosis of diabetes, but has not really had any follow-up, presented to the hospital with 1 week history of ulcer on his left big toe with redness and swelling. Patient has a chronic callus on the plantar aspect of the left big toe. About 3 weeks ago, he noticed an ulcer. There was a little bit of white to his drainage. About a week prior to admission he started noticing redness and swelling. He went to an urgent care center about 4 days ago and he was given an antibiotic. According to the patient the big toe looked like it had a bruise. On the day of admission he started noticing some changes on the top of the big toe, and he noticed that the ulcer looked bigger. He went back to the urgent care center, and from there he was told to go to the hospital for further evaluation and treatment. A shunt has had some subjective fevers and chills. His fevers actually improved after he started taking some antibiotics. He has not had any nausea or vomiting, diarrhea, or any other symptoms as far as respiratory or urinary system. Evaluation has revealed some findings of possible osteomyelitis on his left big toe. Dietary saw the patient, and has recommended amputation. Patient refused , and he went for debridement and bone biopsy yesterday. There was a wound culture done on admission that has Acinetobacter and skin kasi. Intraoperative culture are still pending. Intraoperative findings noted. The bone felt hard, but no ulcer probed into the bone. Pathology report is still pending. Patient had some low-grade temps yesterday. His sedimentation rate is 33, C-reactive protein is 4. Patient currently is on IV vancomycin and Zosyn. Infectious disease consultation has been requested to evaluate the patient. Review of Systems Constitutional: COMPLAINS OF: Fever, Chills Eyes: DENIES: Eye pain Ears, nose, mouth, throat: DENIES: Nasal discharge, Oral lesions, Throat pain, Ear Pain, Running Nose, Sinus Pain, Toothache Respiratory: DENIES: Cough, Shortness of breath Cardiovascular: DENIES: Chest pain, Palpitations, Syncope Gastrointestinal: DENIES: Abdominal pain, Diarrhea, Nausea, Vomiting, Difficulty Swallowing Genitourinary: DENIES: Urgency, Dysuria Musculoskeletal: COMPLAINS OF: Joint pain, Joint Swelling, DENIES: Muscle aches, Neck pain Integumentary: DENIES: Pruritus, Rash Hematologic/lymphatic: COMPLAINS OF: Bruising Neurologic: DENIES: Headache Psychiatric: DENIES: Confusion, Hallucinations Past Family Social History Allergies: Coded Allergies: No Known Allergies (Unverified , 07/31/16) Past Medical History Diabetes, diagnosed last year, has not had any treatment and monitoring Hypertension, not on medicines Obesity Left tib/fib fracture Past Surgical History None Active Ordered Medications Tylenol prn Clonidine prn Vasotec prn Insulin Prinivil Glucophage Zofran Zosyn Vancomycin Social History No smoking No alcohol abuse No illicit drugs Physical Exam Vital Signs Vital Signs Date Time Temp Pulse Resp B/P Pulse Ox O2 Delivery O2 Flow Rate FiO2 08/04/16 12:31 97.8 69 19 164/89 94 08/04/16 08:56 98.9 74 19 137/90 96 08/04/16 08:42 97 21 08/04/16 06:09 98.4 72 20 152/91 97 08/04/16 00:00 100.0 125 18 118/70 94 08/03/16 20:00 98.8 83 20 127/82 94 08/03/16 16:07 96.6 72 18 130/83 96 08/03/16 15:30 98.7 70 17 141/78 95 Room Air 08/03/16 15:15 73 16 145/87 93 Room Air 08/03/16 15:00 78 14 151/76 93 Room Air 08/03/16 14:43 98.9 78 14 145/78 93 Nasal Cannula 3 Physical Exam GENERAL: This is an obese, well-developed CM, awake and alert, in no apparent distress. SKIN: Cool and dry. No generalized rash, no ecchymosis. HEAD: Atraumatic. Normocephalic. No temporal or scalp tenderness. EYES: [place] conjunctivae, no petechia or hemorrhage. Pupils equal round and reactive. Extraocular motions intact. No scleral icterus. No injection or drainage. ENT: Nose without bleeding, or purulent drainage. Moist oral mucosa, no thrush noted. Throat without erythema, or exudate. Uvula midline. Airway patent. NECK: Trachea midline. No JVD or lymphadenopathy. Supple, nontender, no meningeal signs. CARDIOVASCULAR: Regular rate and rhythm without murmurs, gallops, or rubs. RESPIRATORY: Clear to auscultation. Breath sounds equal bilaterally. No wheezes , rales, or rhonchi. Decreased breath sounds at the bases. GASTROINTESTINAL: Abdomen soft, obese, bowel sounds are present and normoactive , non-tender, nondistended. No hepato-splenomegaly, or palpable masses. No guarding. MUSCULOSKELETAL: Right lower extremities without clubbing, cyanosis, or edema. LLE - has a dry intact dressing on his L foot from OR yesterday, I did not remove the dressing. There is no lymphangitis noted in his L leg or thigh. No calf tenderness. Negative Homans sign bilaterally. NEUROLOGICAL: Awake and alert. Cranial nerves II through XII intact. Five out of 5 muscle strength in all muscle groups. Normal speech. PSYCH: Normal affect, calm and cooperative LINE: PIV with no evidence of infection Laboratory Laboratory Tests Test 08/04/16 07:22 Sodium Level 142 Potassium Level 3.8 Chloride Level 104 Carbon Dioxide Level 28.3 Anion Gap 10 Blood Urea Nitrogen 10 Creatinine 0.86 Estimat Glomerular Filtration 102 Rate Random Glucose 123 Calcium Level 8.6 Date/Time Procedure Status Source Growth 08/03/16 14:31 Gram Stain - Final Resulted Wound Other 08/03/16 14:31 Wound Culture Resulted Wound Other Pending 08/03/16 14:31 Fungal Smear - Final Resulted Wound Other NO FUNGAL ELEMENTS SEEN. 08/03/16 14:31 Fungal Culture Resulted Wound Other Pending 08/03/16 14:31 Acid Fast Stain Received Wound Other Pending 08/03/16 14:31 Mycobacterial Culture Received Wound Other Pending 07/31/16 14:30 Aerobic Blood Culture - Preliminary Resulted Blood Peripheral NO GROWTH IN 4 DAYS 07/31/16 14:30 Anaerobic Blood Culture - Preliminary Resulted Blood Peripheral NO GROWTH IN 4 DAYS Result Diagram: 08/01/16 0700 08/04/16 0722 Imaging RADIOLOGY STUDIES/FILMS REVIEWED Foot X-Ray 07/31/16 0000 Signed Impressions: Service Date/Time: Sunday, July 31, 2016 12:31 - CONCLUSION: Soft tissue swelling over the first digit with no destructive change or radiopaque foreign body. Fabricio Bautista MD Foot MRI 07/31/16 0000 Signed Impressions: Service Date/Time: Sunday, July 31, 2016 19:28 - CONCLUSION: 1. Osteomyelitis of both the proximal and distal phalanx of the great toe associated with an ulceration and surrounding cellulitis. There is edema predominantly in the forefoot. No other foci of osteomyelitis identified. No abnormal fluid collections to suggest abscess. Eliezer Long MD Assessment and Plan Assessment and Plan IMPRESSION Diabetic foor infection with ulcer L big toe, and findings of osteo on MRI, S/ P I and D and bone biopsy - wound C/S with Acinetobacter and skin kasi, intra-op C/S pending - path report pending DM Obesity RECOMMENDATION Continue Vanco for now Change Zosyn to Rocephin PO Flagyl for now Follow C/S and deescalate Abx further Await biopsy results Will D/W podiatry If C/S same, one option would be po Cipro which has been used to Rx osteo D/W patient regarding Rx osteo and success in patients with DM and ulcer - compliance a big isssue, heal rate better if ulcer can heal, risk of extension of infection, and risks from alf Abx use I will follow along with you Thank you for this consultation Discussed Condition With Explained plan to the patient Jewell Frost MD August 04, 2016 13:05
--- NOTE | 2016-08-04 13:40 | MP ---
cc: JAKI SMITH DPM DATE OF SURGERY 08/03/2016 PREOPERATIVE DIAGNOSIS Diabetic foot ulcer, osteomyelitis likely of left foot hallux distal and proximal phalanx. POSTOPERATIVE DIAGNOSIS Diabetic foot ulcer, osteomyelitis likely of left foot hallux distal and proximal phalanx. PROCEDURES PERFORMED Left hallux full-thickness debridement with incision bone cortex proximal phalanx and distal phalanx left hallux. COMPLICATIONS None SPECIMEN Proximal phalanx and distal phalanx for pathological analysis and for deep culture. ESTIMATED BLOOD LOSS Less than 30 mL ANESTHESIA General with local DRAINS None. A Bridgette drain was wrapped around the base of the hallux for approximately five minutes. Upon relieving the [place] drain, there was good capillary fill time to the digit. PLAN OF ACTIVITY The patient is to return to floor to monitor wound and to await pathological analysis and culture and sensitivity to determine antibiotic and possible PICC line. 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 He is on his feet many hours per day. He noticed worsening swelling and some pain. The patient was worked up in the hospital, had a mildly elevated white count with imaging findings concerning for osteomyelitis. The patient was offered a digit amputation due to the extent of the ulcer and bone infection, however, he declined. He wished for all digit salvage options. I reviewed long-term IV antibiotics may be indicated and possible minimal walking and light duty for months. The patient wished to move forward with digit salvage type options. PROCEDURE IN DETAIL Under mild sedation, the patient was brought to the operating room, placed on the operative the supine position. Following the induction of general anesthesia, local anesthesia was obtained about the forefoot utilizing standard block fashion. The patient's foot was then scrubbed, prepped and draped in the usual aseptic fashion. The foot was elevated, a Bridgette drain was wrapped around the base of the hallux. There was noted to be fibrotic granular tissue on the dorsum of the foot, as well as the plantar aspect of the IPJ. Utilizing a rongeur, curette and sharp dissection, all nonviable tissue was removed exposing the proximal and distal phalanx. Utilizing a rongeur, an incision bone cortex took place removing bone for pathological analysis as well as microbial analysis. Upon relieving the tourniquet, there was good viable bleeding from wound edges. Xeroform was wrapped around the ulcerations. A bulky bandage was placed. The patient transferred from OR to PACU with all vital signs stable. The patient will remain in the hospital until we determine in fact if there is osteomyelitis in the pathogen causing osteomyelitis. I will see the patient within one to two days. VIKKI Duffy/MELODIE /2:38 PM /1:26 PM
[2016-08-04] MEDS: metroNIDAZOLE 500 MG TAB PO SCH ×2 (14:28→21:07)
[2016-08-04] MEDS: cefTRIAXone INJ 2,000 MG in SODIUM CHLORIDE 0.9% INJ 100 ML IV SCH (14:29)
--- NOTE | 2016-08-04 18:20 | PD.POD ---
Subjective Pain score: 0 Remarks Pain well controlled, refusing amputation wishes for digit salvage, seen bedside with mom Past Med/Surg/Social History Past Medical History Cardiovascular: REPORTS HX OF: Hypertension Past Surgical History HEENT: DENIES HX OF: Cataract extraction, Dental surgery, Laryngectomy, Tonsillectomy, Other head surgery, Other eye surgery, Other ear surgery, Other nasal surgery, Other throat surgery Endocrine: DENIES HX OF: Parathyroidectomy, Thyroid surgery, Other endocrine surgery Respiratory: DENIES HX OF: Bronchoscopy, Lobectomy, Other chest surgery Cardiovascular: DENIES HX OF: Angiogram, Angioplasty, CABG surgery, Carotid endarterectomy, Coronary stent, Heart transplant, Pacemaker, Valve replacement, Other cardiac surgery Gastrointestinal: DENIES HX OF: Appendectomy, Cholecystectomy, Colectomy, subtotal, Colectomy, total, Gastric bypass, Hernia repair, Splenectomy, Other GI surgery Genitourinary: DENIES HX OF: Bladder surgery, Kidney stone extraction, Nephrectomy, Other surgery Genitourinary - male: DENIES HX OF: Prostatectomy, TURP, Vasectomy Musculoskeletal: DENIES HX OF: Joint replacement, Other musculoskeletal srg Integumentary: DENIES HX OF: Skin cancer removal, Other integumentary surg Neurologic: DENIES HX OF: Craniotomy, Spinal surgery, Other neurologic surgery Breast: DENIES HX OF: Breast biopsy, Lumpectomy, Mastectomy, bilateral, Mastectomy, left, Mastectomy, right, Other breast surgery Social History Smoking Status: Never Smoker Objective Vital Signs Vital Signs Date Time Temp Pulse Resp B/P Pulse Ox O2 Delivery O2 Flow Rate FiO2 08/04/16 17:03 97.7 85 22 143/91 99 08/04/16 12:31 97.8 69 19 164/89 94 08/04/16 08:56 98.9 74 19 137/90 96 08/04/16 08:42 97 21 08/04/16 06:09 98.4 72 20 152/91 97 08/04/16 00:00 100.0 125 18 118/70 94 08/03/16 20:00 98.8 83 20 127/82 94 Coded Allergies: No Known Allergies (Unverified , 07/31/16) Medications and IVs Administered Medications Medications (Trade) Dose Ordered Sig/Juan Luis Route PRN Reason Start Time Stop Time Status Last Admin Dose Admin Vancomycin HCl/ Sodium Chloride (Vancomycin Inj/ NS 500 ml Inj) 520 ml @ 250 mls/hr Q12H IV 08/03/16 06:00 08/04/16 06:00 Clonidine (Catapres) 0.2 mg Q4H PRN PO sbp > 160 08/03/16 02:15 08/04/16 13:00 Lisinopril (Prinivil) 10 mg Q12HR PO 08/03/16 09:00 08/04/16 08:03 Metformin HCl 500 mg 500 mg DAILY PO 08/04/16 12:00 08/04/16 11:31 Ceftriaxone Sodium/Sodium Chloride (Rocephin Inj/NS Inj) 100 ml @ 200 mls/hr Q24H IV 08/04/16 14:00 08/04/16 14:29 Metronidazole (Flagyl) 500 mg Q8HR PO 08/04/16 14:00 08/04/16 14:28 Other Results Laboratory Tests Test 08/04/16 07:22 Sodium Level 142 MEQ/L Potassium Level 3.8 MEQ/L Chloride Level 104 MEQ/L Carbon Dioxide Level 28.3 MEQ/L Anion Gap 10 MEQ/L Blood Urea Nitrogen 10 MG/DL Creatinine 0.86 MG/DL Estimat Glomerular Filtration 102 ML/MIN Rate Random Glucose 123 MG/DL Calcium Level 8.6 MG/DL Microbiology Date/Time Procedure Status Source Growth 08/03/16 14:30 Gram Stain - Final Resulted Wound Other 08/03/16 14:30 Wound Culture - Preliminary Resulted Wound Other NO GROWTH IN 24 HOURS. 08/03/16 14:30 Acid Fast Stain Received Wound Other Pending 08/03/16 14:30 Mycobacterial Culture Received Wound Other Pending 08/03/16 14:30 Fungal Smear - Final Resulted Wound Other NO FUNGAL ELEMENTS SEEN. 08/03/16 14:30 Fungal Culture Resulted Wound Other Pending 08/03/16 14:31 Gram Stain - Final Resulted Wound Other 08/03/16 14:31 Wound Culture - Preliminary Resulted Wound Other NO GROWTH IN 24 HOURS. 08/03/16 14:31 Acid Fast Stain Received Wound Other Pending 08/03/16 14:31 Mycobacterial Culture Received Wound Other Pending 08/03/16 14:31 Fungal Smear - Final Resulted Wound Other NO FUNGAL ELEMENTS SEEN. 08/03/16 14:31 Fungal Culture Resulted Wound Other Pending Bone path pending Physical Exam Remarks Dorsal ulceration 1 x 2 cm at the left hallux, as well as a plantar hallux ulceration of 1.5 x 0.5 with 0.5 in depth. There is less drainage. There is no crepitus or inflammation, no pain on range of motion. Improved erythema at the dorsal aspect of the toe. Hair growth distally DP and PT palpable. Assessment & Plan A/P Left hallux ulcer OM with cellulitis. SP I and D with bone bx- 08/04. Reviewed options including digit amp. Wants to salvage. Wound/toe is improving. Bandage changed Will FU 1-2 days. Continue IV ABX for now appreciate ID rec's Conor Meier DPM August 04, 2016 18:20
[2016-08-05] VITALS: BP 142/95; PULSE 76; RESP 20; TEMP 98.4; O2SAT 98
[2016-08-05] MEDS: metroNIDAZOLE 500 MG TAB PO SCH ×3 (06:00→20:41)
[2016-08-05] MEDS: VANCOMYCIN INJ 2,250 MG in SODIUM CHLORID 0.9% 500 ML INJ 500 ML IV SCH ×2 (06:00→17:26)
[2016-08-05] MEDS: INSULIN ASPART SUPPLEMENTAL SCALE SQ SCH ×4 (06:16→20:41)
[2016-08-05 06:34] VITALS: BP 146/94; PULSE 70; RESP 18; TEMP 98.6; O2SAT 99
[2016-08-05 07:30] VITALS: BP 137/96; PULSE 74; RESP 17; TEMP 96.7; O2SAT 98
[2016-08-05] MEDS: LISINOPRIL 10 MG TAB PO SCH (07:33)
[2016-08-05] MEDS: metFORMIN HCL 500 MG TAB PO SCH (07:33)
--- NOTE | 2016-08-05 10:27 | HHI.IDPN ---
Subjective Subjective Remarks 36 year old male admittied with L great toe infection. Has DM. S/P I and D L big toe and bone biopsy. Notes reviewed D/W Dr Gutierrez yesterday Pain better NO fever Path pending INtraop C/S prelim 1 cfu Staph species (contaminant), second C/S negative Initial wound C/S, with Acinetobacter and skin kasi Antibiotics Vancomycin Rocephin Lines PIV Past Medical History Diabetes, diagnosed last year, has not had any treatment and monitoring Hypertension, not on medicines Obesity Left tib/fib fracture Allergies: Coded Allergies: No Known Allergies (Unverified , 07/31/16) Objective . Vital Signs Date Time Temp Pulse Resp B/P Pulse Ox O2 Delivery O2 Flow Rate FiO2 08/05/16 07:30 96.7 74 17 137/96 98 08/05/16 06:34 98.6 70 18 146/94 99 08/05/16 00:00 98.4 76 20 142/95 98 08/04/16 20:00 99.3 72 20 138/89 98 08/04/16 17:03 97.7 85 22 143/91 99 08/04/16 12:31 97.8 69 19 164/89 94 08/04/16 08/04/16 08/05/16 14:59 22:59 06:59 Intake Total 720 ml 670 ml Balance 720 ml 670 ml Intake Oral 720 ml 320 ml IV Total 350 ml # Voids 1 3 # Bowel Movements 1 0 . Laboratory Tests Test 08/04/16 07:22 Sodium Level 142 MEQ/L Potassium Level 3.8 MEQ/L Chloride Level 104 MEQ/L Carbon Dioxide Level 28.3 MEQ/L Anion Gap 10 MEQ/L Blood Urea Nitrogen 10 MG/DL Creatinine 0.86 MG/DL Estimat Glomerular Filtration 102 ML/MIN Rate Random Glucose 123 MG/DL Calcium Level 8.6 MG/DL Microbiology Date/Time Procedure Status Source Growth 08/03/16 14:30 Gram Stain - Final Resulted Wound Other 08/03/16 14:30 Wound Culture - Preliminary Resulted Staphylococcus Species 08/03/16 14:30 Acid Fast Stain Received Wound Other Pending 08/03/16 14:30 Mycobacterial Culture Received Wound Other Pending 08/03/16 14:30 Fungal Smear - Final Resulted Wound Other NO FUNGAL ELEMENTS SEEN. 08/03/16 14:30 Fungal Culture Resulted Wound Other Pending 08/03/16 14:31 Gram Stain - Final Resulted Wound Other 08/03/16 14:31 Wound Culture - Preliminary Resulted Wound Other NO GROWTH IN 48 HOURS. 08/03/16 14:31 Acid Fast Stain Received Wound Other Pending 08/03/16 14:31 Mycobacterial Culture Received Wound Other Pending 08/03/16 14:31 Fungal Smear - Final Resulted Wound Other NO FUNGAL ELEMENTS SEEN. 08/03/16 14:31 Fungal Culture Resulted Wound Other Pending Imaging Last Impressions Foot X-Ray 07/31/16 0000 Signed Impressions: Service Date/Time: Sunday, July 31, 2016 12:31 - CONCLUSION: Soft tissue swelling over the first digit with no destructive change or radiopaque foreign body. Fabricio Bautista MD Foot MRI 07/31/16 0000 Signed Impressions: Service Date/Time: Sunday, July 31, 2016 19:28 - CONCLUSION: 1. Osteomyelitis of both the proximal and distal phalanx of the great toe associated with an ulceration and surrounding cellulitis. There is edema predominantly in the forefoot. No other foci of osteomyelitis identified. No abnormal fluid collections to suggest abscess. Eliezer Long MD Physical Exam GENERAL: awake and alert, in no apparent distress. SKIN: Cool and dry. No generalized rash, no ecchymosis. HEAD: Atraumatic. Normocephalic. No temporal or scalp tenderness. EYES: [place] conjunctivae, no petechia or hemorrhage. No scleral icterus. No injection or drainage. ENT: Nose without bleeding, or purulent drainage. Moist oral mucosa, no thrush noted. Throat without erythema, or exudate. NECK: Trachea midline. No JVD or lymphadenopathy. Supple, nontender, no meningeal signs. CARDIOVASCULAR: Regular rate and rhythm without murmurs, gallops, or rubs. RESPIRATORY: Clear to auscultation. Breath sounds equal bilaterally. No wheezes , rales, or rhonchi. Decreased breath sounds at the bases. GASTROINTESTINAL: Abdomen soft, obese, bowel sounds are present and normoactive , non-tender, nondistended. No hepato-splenomegaly, or palpable masses. No guarding. MUSCULOSKELETAL: Right lower extremities without clubbing, cyanosis, or edema. LLE - has ulcer plantar aspect of his big toe, and a smaller ulcer dorsally and medially, both are dry and has minimal drainage, big toe min edematous and has very minimal erythema. NO redness seen on dorsum of his L foot. There is no lymphangitis noted in his L leg or thigh. No calf tenderness. NEUROLOGICAL: Awake and alert. Cranial nerves II through XII intact. Five out of 5 muscle strength in all muscle groups. Normal speech. PSYCH: Normal affect, calm and cooperative LINE: PIV with no evidence of infection Assessment & Plan Remarks IMPRESSION Diabetic foor infection with ulcer L big toe, and findings of osteo on MRI, S/ P I and D and bone biopsy - wound C/S with Acinetobacter and skin kasi, intra-op C/S pending - path report pending DM Obesity RECOMMENDATION Continue Vanco for now Continue Rocephin PO Flagyl for now Follow C/S and deescalate Abx further, and decide on Abx Await biopsy results D/W Dr Gutierrez yesterday - infection fairly severe and tracked dorsally on his L big toe, likely with osteomyelitis D/W Dr Razo - place PICC, follow CX/S and possibly D/C tomorrow once arrangements ,mag; will determine Abx choice tomorrow Explained plan to patient Jewell Frost MD August 05, 2016 10:27
[2016-08-05 11:56] VITALS: BP 165/97; PULSE 87; RESP 17; TEMP 99.1; O2SAT 96
--- NOTE | 2016-08-05 12:29 | HHI.PR ---
Subjective Remarks No new complaints. Pain is controlled. Objective Vitals Vital Signs Date Time Temp Pulse Resp B/P Pulse Ox O2 Delivery O2 Flow Rate FiO2 08/05/16 11:56 99.1 87 17 165/97 96 08/05/16 07:30 96.7 74 17 137/96 98 08/05/16 06:34 98.6 70 18 146/94 99 08/05/16 00:00 98.4 76 20 142/95 98 08/04/16 20:00 99.3 72 20 138/89 98 08/04/16 17:03 97.7 85 22 143/91 99 08/04/16 12:31 97.8 69 19 164/89 94 08/04/16 08/04/16 08/05/16 15:00 23:00 07:00 Intake Total 720 ml 670 ml Balance 720 ml 670 ml Intake Oral 720 ml 320 ml IV Total 350 ml # Voids 1 3 # Bowel Movements 1 0 Result Diagram: 08/01/16 0700 08/04/16 0722 Other Results Laboratory Tests Test 08/04/16 08/04/16 07:22 17:00 Sodium Level 142 MEQ/L Potassium Level 3.8 MEQ/L Chloride Level 104 MEQ/L Carbon Dioxide Level 28.3 MEQ/L Anion Gap 10 MEQ/L Blood Urea Nitrogen 10 MG/DL Creatinine 0.86 MG/DL Estimat Glomerular Filtration 102 ML/MIN Rate Random Glucose 123 MG/DL Calcium Level 8.6 MG/DL Vancomycin Level Trough 11.8 MCG/ML Imaging Last Impressions Foot X-Ray 07/31/16 0000 Signed Impressions: Service Date/Time: Sunday, July 31, 2016 12:31 - CONCLUSION: Soft tissue swelling over the first digit with no destructive change or radiopaque foreign body. Fabricio Bautista MD Foot MRI 07/31/16 0000 Signed Impressions: Service Date/Time: Sunday, July 31, 2016 19:28 - CONCLUSION: 1. Osteomyelitis of both the proximal and distal phalanx of the great toe associated with an ulceration and surrounding cellulitis. There is edema predominantly in the forefoot. No other foci of osteomyelitis identified. No abnormal fluid collections to suggest abscess. Eliezer Long MD Objective Remarks General: NAD, AAOx3 Chest: CTA Cardiac: Regular Abd: +BS, soft ND/NT Ext: Left foot bandages are c/d/i A/P Problem List: (1) Osteomyelitis Status: Acute Plan: - Pt is 36 yo male with Type 2 DM and HTN - Pt developed left great toe plantar ulcer then dorsally ulcerated with cellulitis. - MRI confirmed osteomyelitis of both the proximal and distal phalanx of the great toe associated with an ulceration and surrounding cellulitis. There is edema predominantly in the forefoot. No other foci of osteomyelitis identified. No abnormal fluid collections to suggest abscess. - Pt failed outpt treatment with Bactrim and Clinda - ED initiated iv Zosyn/Vanco. which was continued. - Wound culture resulted in Acinetobacter Baumannii/Maemol - Appreciate ID consultation - Blood culture (07/31) with NGTD - Podiatry following - Patient underwent left hallux ulcer debridement with incision bone cortex on . Surgery revealed necrosis of skin dorsal and plantar, bone appear hard however ulcer probed to bone - Surgical culture (08/03) with 1 CFU Staph Sp., await final culture results. - Pathology is pending. - PICC line to be placed today - Pt will need improved blood sugar control for wound healing following discharge, Hgb A1C 8/1% - Pt currently on NovoLog SSI. Metformin 500mg po daily resumed. - DVT prophylaxis with SCDs (2) Diabetic foot ulcer Status: Acute Plan: - See above (3) Cellulitis of left foot Status: Acute Plan: - See above (4) DM (diabetes mellitus) Status: Chronic Plan: - Pt will need improved diabetic control - Hgb A1C is 8.1% - NovoLog SSI - Accu checks - Pt is on Metformin 500mg po daily (5) HTN (hypertension) Status: Acute Plan: - Pts BP was significantly elevated at admission. - Cont. Lisinopril 10mg BID - prn Catapres, prn IV Vasotec - observe Assessment and Plan Patient examined. Assessment and plan formulated with Katt HOPKINS I agree with the above. Problem Qualifiers (1) Diabetic foot ulcer: Qualified Code: E13.621 - Diabetic ulcer of toe of left foot associated with diabetes mellitus of other type, unspecified ulcer stage (2) DM (diabetes mellitus): Katt Copeland August 05, 2016 12:29 Fantasma Razo DO August 07, 2016 10:09
[2016-08-05] MEDS: cloNIDine HCL 0.1 MG TAB PO PRN (12:51)
[2016-08-05] MEDS: cefTRIAXone INJ 2,000 MG in SODIUM CHLORIDE 0.9% INJ 100 ML IV SCH (15:16)
[2016-08-05 15:20] VITALS: BP 134/80; PULSE 71; RESP 17; TEMP 97.3; O2SAT 98
[2016-08-05] MEDS: LISINOPRIL 20 MG TAB PO SCH (20:41)
[2016-08-05 21:05] VITALS: BP 130/73; PULSE 77; RESP 20; TEMP 97.4; O2SAT 99
[2016-08-06 00:16] VITALS: BP 142/87; PULSE 70; RESP 19; TEMP 97.7; O2SAT 97
[2016-08-06 05:39] VITALS: BP 150/85; PULSE 67; RESP 18; TEMP 96.1; O2SAT 98
[2016-08-06] MEDS: INSULIN ASPART SUPPLEMENTAL SCALE SQ SCH ×3 (06:03→16:00)
[2016-08-06] MEDS: VANCOMYCIN INJ 2,250 MG in SODIUM CHLORID 0.9% 500 ML INJ 500 ML IV SCH (06:03)
[2016-08-06] MEDS: metroNIDAZOLE 500 MG TAB PO SCH (06:03)
[2016-08-06 07:25] VITALS: BP 159/96; PULSE 63; RESP 16; TEMP 97.6; O2SAT 97
--- NOTE | 2016-08-06 09:57 | HHI.FF ---
Infusion Therapy Location of Infusion Therapy: [facility] IV Infusion Order Patient Information Patient Weight 171 kg Diagnosis: Diagnosis Infection big toe, osteomyelitis Coded Allergies: No Known Allergies (Unverified , 07/31/16) Administer Medication Ceftriaxone 2 grams IV q 24 hours Stop Treatment: Sep 14, 2016 Additional Information Venous access: PICC Line, Other Additional Instructions [x] Peripheral flush and dressing changes per protocol [x] Implanted port and central pipelines supervisor: * Implanted port: 10 ml Normal Saline followed by 5 ml Heparin 100 units/ml Heparin flush after each use and monthly to maintain. [] May leave port accessed during therapy. [] May leave peripheral site accessed for duration of therapy. [x] If patient has SOB or respiratory distress, check oxygen saturation. If less than 90% or clinical signs of respiratory distress, administer oxygen at 2 L/min. via nasal cannula and notify physician. [x] Anaphylaxis/Reaction orders: * Stop infusion. * Keep IV line open with saline flush. * Notify physician. * Monitor vital signs every 15 minutes until symptoms resolve. * Check Oxygen saturation; Oxygen at 2 L/min. via nasal cannula if less than 90% or clinical signs of respiratory distress. * Administer diphenhydramine (Benadryl) 25 mg IV STAT, (unless patient has received as pre-med). May repeat once, if necessary. * Solu-Cortef 250 mg IVP over 30-60 seconds, use 100 mg vials for each dissolution. * Epinephrine (1mg/1 ml) 0.3 mg subcutaneously or IVP now with any signs of respiratory distress. * Check with physician for new additional pre-med orders if patient is re- challenged or re-treated. [x] May remove PICC line when treatment complete, after confirming with Physician. [x] If the patient is admitted to the hospital, the ED, or transferred via [facility] , complete transfer form including medication reconciliation order sheet. Laboratory Tests Weekly Labs: CBC w/diff, Creatinine, LFT's (Hepatic function test) (labs every Tuesday - copy to tx) Jewell Frost MD August 06, 2016 09:57
--- NOTE | 2016-08-06 10:00 | HHI.IDPN ---
Subjective Subjective Remarks 36 year old male admittied with L great toe infection. Has DM. S/P I and D L big toe and bone biopsy. Notes reviewed Pain better NO fever Path report noted; suggestive of osteomyelitis Intraop C/S 1 cfu Coag Neg Staph (doubt significance), other C/S negative Initial wound C/S, with Acinetobacter and skin kasi Antibiotics Vancomycin Rocephin Lines PIV Past Medical History Diabetes, diagnosed last year, has not had any treatment and monitoring Hypertension, not on medicines Obesity Left tib/fib fracture Allergies: Coded Allergies: No Known Allergies (Unverified , 07/31/16) Objective . Vital Signs Date Time Temp Pulse Resp B/P Pulse Ox O2 Delivery O2 Flow Rate FiO2 08/06/16 07:25 97.6 63 16 159/96 97 08/06/16 05:39 96.1 67 18 150/85 98 08/06/16 00:16 97.7 70 19 142/87 97 08/05/16 21:05 97.4 77 20 130/73 99 08/05/16 15:20 97.3 71 17 134/80 98 08/05/16 11:56 99.1 87 17 165/97 96 08/05/16 08/05/16 08/06/16 15:00 23:00 07:00 Intake Total 480 ml Balance 480 ml Intake Oral 480 ml # Voids 4 2 1 # Bowel Movements 2 1 0 . Laboratory Tests Test 08/06/16 06:38 Creatinine 0.74 MG/DL Estimat Glomerular Filtration 121 ML/MIN Rate Microbiology Date/Time Procedure Status Source Growth 08/03/16 14:30 Gram Stain - Final Complete Wound Other 08/03/16 14:30 Wound Culture - Final Complete Staph Sp Coagulase Negative 08/03/16 14:30 Acid Fast Stain - Final Resulted Wound Other NO ACID FAST BACILLI SEEN 08/03/16 14:30 Mycobacterial Culture Resulted Wound Other Pending 08/03/16 14:30 Fungal Smear - Final Resulted Wound Other NO FUNGAL ELEMENTS SEEN. 08/03/16 14:30 Fungal Culture Resulted Wound Other Pending 08/03/16 14:31 Gram Stain - Final Complete Wound Other 08/03/16 14:31 Wound Culture - Final Complete Wound Other NO GROWTH IN 72 HRS.--AEROBICALLY OR ... 08/03/16 14:31 Acid Fast Stain - Final Resulted Wound Other NO ACID FAST BACILLI SEEN 08/03/16 14:31 Mycobacterial Culture Resulted Wound Other Pending 08/03/16 14:31 Fungal Smear - Final Resulted Wound Other NO FUNGAL ELEMENTS SEEN. 08/03/16 14:31 Fungal Culture Resulted Wound Other Pending Imaging Last Impressions Foot X-Ray 07/31/16 0000 Signed Impressions: Service Date/Time: Sunday, July 31, 2016 12:31 - CONCLUSION: Soft tissue swelling over the first digit with no destructive change or radiopaque foreign body. Fabricio Bautista MD Foot MRI 07/31/16 0000 Signed Impressions: Service Date/Time: Sunday, July 31, 2016 19:28 - CONCLUSION: 1. Osteomyelitis of both the proximal and distal phalanx of the great toe associated with an ulceration and surrounding cellulitis. There is edema predominantly in the forefoot. No other foci of osteomyelitis identified. No abnormal fluid collections to suggest abscess. Eliezer Long MD Physical Exam GENERAL: awake and alert, in no apparent distress. SKIN: Cool and dry. No generalized rash, no ecchymosis. HEAD: Atraumatic. Normocephalic. No temporal or scalp tenderness. EYES: [place] conjunctivae, no petechia or hemorrhage. No scleral icterus. No injection or drainage. ENT: Nose without bleeding, or purulent drainage. Moist oral mucosa, no thrush noted. Throat without erythema, or exudate. NECK: Trachea midline. No JVD or lymphadenopathy. Supple, nontender, no meningeal signs. CARDIOVASCULAR: Regular rate and rhythm without murmurs, gallops, or rubs. RESPIRATORY: Clear to auscultation. Breath sounds equal bilaterally. No wheezes , rales, or rhonchi. Decreased breath sounds at the bases. GASTROINTESTINAL: Abdomen soft, obese, bowel sounds are present and normoactive , non-tender, nondistended. No hepato-splenomegaly, or palpable masses. No guarding. MUSCULOSKELETAL: Right lower extremities without clubbing, cyanosis, or edema. LLE - has ulcer plantar aspect of his big toe, and a smaller ulcer dorsally and medially, both are dry and has minimal drainage, big toe min edematous and has very minimal erythema. NO redness seen on dorsum of his L foot. There is no lymphangitis noted in his L leg or thigh. No calf tenderness. NEUROLOGICAL: Awake and alert. Cranial nerves II through XII intact. Five out of 5 muscle strength in all muscle groups. Normal speech. PSYCH: Normal affect, calm and cooperative LINE: PIV with no evidence of infection Assessment & Plan Remarks IMPRESSION Diabetic foor infection with ulcer L big toe, and findings of osteo on MRI, S/ P I and D and bone biopsy - wound C/S with Acinetobacter and skin kasi, intra-op C/S pending - path report pending DM Obesity RECOMMENDATION Stop Vanco Continue Rocephin Stop Flagyl Midline 6 weeks IV Rocephin Abx infusion form filled out Labs weekly while on IV Abx: CBC, creat, LFT Wound care per podiatry OK for D/C today from ID standpoint once IV Abx arranged Jewell Frost MD August 06, 2016 10:00
[2016-08-06] MEDS: LISINOPRIL 20 MG TAB PO SCH (10:22)
[2016-08-06] MEDS: metFORMIN HCL 500 MG TAB PO SCH (10:22)
[2016-08-06 11:46] VITALS: BP 159/105; PULSE 71; RESP 16; TEMP 97.8; O2SAT 97
[2016-08-06] MEDS ORDERED: CEFT2INJ2 IV (12:59)
[2016-08-06] MEDS ORDERED: LISI-515 PO (13:08)
[2016-08-06] MEDS ORDERED: SODIUM CHLORIDE 0.9% FLUSH 10 ML FLUSH IV FLUSH PRN (13:15)
--- NOTE | 2016-08-06 13:17 | HHI.DS ---
Discharge Summary Admission Date July 31, 2016 at 15:46 Discharge Date: August 06, 2016 Admitting Diagnosis cellulitis Failed outpatient therapy, diabetic foot ulcer (1) Osteomyelitis Diagnosis: Principal (2) Diabetic foot ulcer Diagnosis: Principal (3) Cellulitis of left foot Diagnosis: Secondary (4) DM (diabetes mellitus) Diagnosis: Secondary (5) HTN (hypertension) Diagnosis: Secondary Consultants Dr. Conor Meier - Podiatry Dr. Jewell Frost - Infectious Disease Procedures Left hallux ulcer debridement with incision bone cortex on 08/03/16. Surgery revealed necrosis of skin dorsal and plantar, bone appear hard however ulcer probed to bone. Brief History Pt is 36 yo male who presents with left great toe infection. Says he just joined with cp and has not seen his pcp. Reports being diagnosed last yr with dm 2 but doesn't monitor it. 3 weeks ago he noticed a dime size ulceration on planter aspect of left great toe. This was in the area of a callus. Then earlier this week he notice redness on dorsal aspect of the great toe 4 days ago. He was started on bactrim and clinda. Then skin sloughed off and dorsal aspect ulcerated as well. no f/c or rigors. no n/v/d reported. CBC/BMP: 08/06/16 0638 Significant Findings Laboratory Tests Test 08/04/16 08/04/16 07:22 17:00 Random Glucose 123 MG/DL (74-106) Vancomycin Level Trough 11.8 MCG/ML (5.0-10.0) Imaging Last Impressions Foot X-Ray 07/31/16 0000 Signed Impressions: Service Date/Time: Sunday, July 31, 2016 12:31 - CONCLUSION: Soft tissue swelling over the first digit with no destructive change or radiopaque foreign body. Fabricio Bautista MD Foot MRI 07/31/16 0000 Signed Impressions: Service Date/Time: Sunday, July 31, 2016 19:28 - CONCLUSION: 1. Osteomyelitis of both the proximal and distal phalanx of the great toe associated with an ulceration and surrounding cellulitis. There is edema predominantly in the forefoot. No other foci of osteomyelitis identified. No abnormal fluid collections to suggest abscess. Eliezer Long MD PE at Discharge General: NAD, AAOx3 Chest: CTA Cardiac: Regular Abd: +BS, soft ND/NT Ext: Left foot bandages are c/d/i Hospital Course Pt is 36 yo male with Type 2 DM and HTN. Pt developed left great toe plantar ulcer then dorsally ulcerated with cellulitis. MRI confirmed osteomyelitis of both the proximal and distal phalanx of the great toe associated with an ulceration and surrounding cellulitis. There is edema predominantly in the forefoot. No other foci of osteomyelitis identified. No abnormal fluid collections to suggest abscess. Pt failed outpt treatment with Bactrim and Clinda. ED initiated iv Zosyn/Vanco. which was continued. Podiatry was consulted at admission. Wound culture resulted in Acinetobacter Baumannii/ Maemol. ID was consulted. Blood culture (07/31) with NGTD. Patient underwent left hallux ulcer debridement with incision bone cortex on 08/03/16. Surgery revealed necrosis of skin dorsal and plantar, bone appear hard however ulcer probed to bone. Surgical culture (08/03) with 1 CFU Staph coagulase negative. Pathology confirmed mild chronic osteomyelitis in the proximal phalanx left hallux. PICC line placed. ID is recommending 6 weeks of IV Rocephin 2grams Q24H with weekly labs (CBC w/diff, Creatinine, LFT's every Tuesday) Pts BP has been elevated during this admission. He was started on Lisinopril 10mg BID and this was increased to 20mg po BID on 08/05. Pt will be discharged on Lisinopril 20mg po BID. Pt will need improved blood sugar control for wound healing following discharge , Hgb A1C 8.1%. Pts BS have been stable on a diabetic diet with NovoLog SSI and his Metformin 500mg po daily resumed. We will send him with NovoLog SSI and his home dose of Metformin 500mg po daily upon discharge. He will need to followup with Dr. Meier early next week. He is to wear the post-op shoe any time he is ambulating. Wound care instructions per Podiatry Pt will need to followup with his PCP in 1 week. Pt Condition on Discharge: Stable Discharge Disposition: Disch w/ Home Health Serv Discharge Instructions DIET: Follow Instructions for: Diabetic Diet Activities you can perform: See Additionl Instruction Other Activity Instructions: Must wear post-op shoe when ambulating Follow up Referrals: PCP Follow-up - [address] Didier [facility] - 3-5 Days with Conor Meier DPM New Medications: Ceftriaxone Inj (Ceftriaxone Inj) 2 Gm/50 Ml Bagp 2 GM IV Q24H Stop date: September 14, 2016 Infection Days 39 Ref 0 BAG Lisinopril (Lisinopril) 20 Mg Tab 20 MG PO Q12HR htn #62 TAB Continued Medications: Metformin (Metformin) 500 Mg Tab 500 MG PO DAILY With a meal Blood Sugar Management #0 Ref 0 TAB Additional Information Patient examined. Assessment and plan formulated with Katt Copeland PA-C. I agree with the above. Katt Copeland August 06, 2016 13:17 Fantasma Razo DO August 07, 2016 10:09
--- NOTE | 2016-08-06 13:18 | RADRPT ---
EXAM DATE/TIME: 08/06/2016 12:49 [facility] COMPARISON: No previous studies available for comparison. INDICATIONS : PICC line placement MEDICAL HISTORY : Diabetes mellitus type II. Cellulitis, foot SURGICAL HISTORY : None. ENCOUNTER: Initial ACUITY: 1 day PAIN SCORE: 0/10 LOCATION: Right chest FINDINGS: A single view of the chest demonstrates placement of a right upper extremity PICC line. Tip of the PI CC line is at the superior vena caval/right atrial junction. Heart and mediastinal structures are unremarkable. Lungs are well-expanded and clear. CONCLUSION: Satisfactory position of the newly placed right upper extremity PICC line. Kyle Velazquez MD on August 06, 2016 at 13:13 Board Certified Radiologist. This report was verified electronically.
--- NOTE | 2016-08-06 13:18 | HHI.FF ---
Face to Face Verification Diagnosis: (1) Osteomyelitis (2) Diabetic foot ulcer (3) DM (diabetes mellitus) (4) HTN (hypertension) (5) Cellulitis of left foot Home Health Nursing Order: Diabetic education Wound care and dressing changes (per podiatry) Nursing assessment with vital signs IV medication administration I have seen patient Simon Cassidy on 08/06/16. My clinical findings support the need for the requested home health care services because: Infection w/ risk of complications Injectable med education/admin I certify that my clinical findings support that this patient is homebound because: Post-op weakness Katt Copeland August 06, 2016 13:18
[2016-08-06] MEDS ORDERED: NOVOLOGP2 SQ (13:43)
--- NOTE | 2016-08-06 15:14 | PD.POD ---
Subjective Pain score: 0 Remarks SP PICC ready to go home Past Med/Surg/Social History Past Medical History Cardiovascular: REPORTS HX OF: Hypertension Past Surgical History HEENT: DENIES HX OF: Cataract extraction, Dental surgery, Laryngectomy, Tonsillectomy, Other head surgery, Other eye surgery, Other ear surgery, Other nasal surgery, Other throat surgery Endocrine: DENIES HX OF: Parathyroidectomy, Thyroid surgery, Other endocrine surgery Respiratory: DENIES HX OF: Bronchoscopy, Lobectomy, Other chest surgery Cardiovascular: DENIES HX OF: Angiogram, Angioplasty, CABG surgery, Carotid endarterectomy, Coronary stent, Heart transplant, Pacemaker, Valve replacement, Other cardiac surgery Gastrointestinal: DENIES HX OF: Appendectomy, Cholecystectomy, Colectomy, subtotal, Colectomy, total, Gastric bypass, Hernia repair, Splenectomy, Other GI surgery Genitourinary: DENIES HX OF: Bladder surgery, Kidney stone extraction, Nephrectomy, Other surgery Genitourinary - male: DENIES HX OF: Prostatectomy, TURP, Vasectomy Musculoskeletal: DENIES HX OF: Joint replacement, Other musculoskeletal srg Integumentary: DENIES HX OF: Skin cancer removal, Other integumentary surg Neurologic: DENIES HX OF: Craniotomy, Spinal surgery, Other neurologic surgery Breast: DENIES HX OF: Breast biopsy, Lumpectomy, Mastectomy, bilateral, Mastectomy, left, Mastectomy, right, Other breast surgery Social History Smoking Status: Never Smoker Objective Vital Signs Vital Signs Date Time Temp Pulse Resp B/P Pulse Ox O2 Delivery O2 Flow Rate FiO2 08/06/16 11:46 97.8 71 16 159/105 97 08/06/16 07:25 97.6 63 16 159/96 97 08/06/16 05:39 96.1 67 18 150/85 98 08/06/16 00:16 97.7 70 19 142/87 97 08/05/16 21:05 97.4 77 20 130/73 99 08/05/16 15:20 97.3 71 17 134/80 98 Coded Allergies: No Known Allergies (Unverified , 07/31/16) Medications and IVs Administered Medications Medications (Trade) Dose Ordered Sig/Juan Luis Route PRN Reason Start Time Stop Time Status Last Admin Dose Admin Clonidine (Catapres) 0.2 mg Q4H PRN PO sbp > 160 08/03/16 02:15 08/05/16 12:51 Metformin HCl 500 mg 500 mg DAILY PO 08/04/16 12:00 08/06/16 10:22 Ceftriaxone Sodium/Sodium Chloride (Rocephin Inj/NS Inj) 100 ml @ 200 mls/hr Q24H IV 08/04/16 14:00 08/05/16 15:16 Lisinopril (Prinivil) 20 mg Q12HR PO 08/05/16 21:00 08/06/16 10:22 Other Results Laboratory Tests Test 08/06/16 06:38 Creatinine 0.74 MG/DL Estimat Glomerular Filtration 121 ML/MIN Rate Bn Path- OM proximal phalanx Physical Exam Remarks Dorsal ulceration 1 x 2 cm at the left hallux, as well as a plantar hallux ulceration of 1.5 x 0.5 with 0.5 in depth. There is less drainage. There is no crepitus or inflammation, no pain on range of motion. Improved erythema at the dorsal aspect of the toe. Hair growth distally DP and PT palpable. Assessment & Plan A/P Left hallux ulcer OM with cellulitis. SP I and D with bone bx- 08/04. Path Reviewed- OM, Reviewed woundcare with the patient, FU out pt IV ABX arranged. Conor Meier DPM August 06, 2016 15:14
[2016-08-06] MEDS: cefTRIAXone INJ 2,000 MG in SODIUM CHLORIDE 0.9% INJ 100 ML IV SCH (15:33)
[2016-08-06] MEDS ORDERED: PHARMACY ORDERED LAB ONE (17:45)
[2016-08-07] MEDS ORDERED: SODIUM CHLORIDE 0.9% FLUSH 10 ML FLUSH IV FLUSH SCH (09:00)
== END 2016-08-06 17:16 | disposition home health service (06) | DRG 629 ==
LOC: NEPC 11:49 → NEDA 15:46 → N05A 20:17
PROVIDERS: ADMIT Hospitalist; ATTEND Hospitalist
PROC: 0QBR0ZZ Excision of Left Toe Phalanx, Open Approach (ICD-10-PCS; principal; 2016-08-03 13:50)
DX: E11.621 Type 2 diabetes mellitus with foot ulcer (principal); L03.116 Cellulitis of left lower limb; M86.9 Osteomyelitis, unspecified; E11.42 Type 2 diabetes mellitus with diabetic polyneuropathy; Z68.42 Body mass index [BMI] 45.0-49.9, adult; L97.529 Non-pressure chronic ulcer of other part of left foot with unspecified severity; I10 Essential (primary) hypertension; E66.8 Other obesity; Z79.84 Long term (current) use of oral hypoglycemic drugs; E11.69 Type 2 diabetes mellitus with other specified complication
CPT/HCPCS: 36569; 71010; 73630; 73720; 76937; 80048; 80053; 80202; 82565; 82948; 83036; 83605; 85025; 85652; 86140; 86403; 87015; 87040; 87070; 87077; 87102; 87116; 87186; 87205; 87206; 88305; 88307; 88311; 96365; 96368; 96375; A9579; J0131; J0696; J1815; J2250; J2405; J2543; J3010; J3370; J7030; J7040; J7050; L3260

== ENCOUNTER → 2017-04-21 | Day surgery (SDC) | payer OTHER ==
[~2017-04-21] MED LIST changes: -1-ME1LIQ PO; +BUPIVACAINE HCL PF 0.25% 30 ML VIAL ONE; +CEFT2INJ2 IV; -HYDR-2768 PO; +KETOROLAC TROMETHAMINE 30 MG/ML (IVP) VIAL IV PUSH ONE; +LACTATED RINGER'S 1000 ML INJ 1,000 ML ONE; +LISI-515 PO; -LISI40TA PO; -METF500 PO; +METF500T PO; +MIDAZOLAM HCL 2 MG/2 ML VIAL ONE; -MULTCHW12 PO; +NOVOLOGP2 SQ; +ONDANSETRON HCL 4 MG/2 ML VIAL IV PUSH ONE; +PROPOFOL 200 MG/20 ML AMP IV ONE; -VITA200017 PO; +ceFAZolin 2 GM PREMIX 50 ML ONE
--- NOTE | 2017-04-24 08:56 | MP ---
cc: JAKI SMITH DPM DATE OF SURGERY: 04/21/2017. PREOPERATIVE DIAGNOSIS: Left hallux interphalangeal joint exostosis. POSTOPERATIVE DIAGNOSIS: Left hallux interphalangeal joint exostosis. PROCEDURES PERFORMED: Left hallux IPJ exostectomy, partial phalangectomy of proximal phalanx. SURGEON: Jaki Smith DPM SPECIMEN: Bone for pathology and bone for culture. ESTIMATED BLOOD LOSS: Less than 30 mL. TOURNIQUET TIME: Just under thirty minutes at a setting of 215 mmHg over the patient's left calf. INJECTABLES: 10 cc of 0.25% Marcaine plain. JUSTIFICATION FOR THE PROCEDURE: A pleasant 37-year-old male with a history of diabetes and neuropathy. He is actually known to me for having severe osteomyelitis within the past 18 months and now is developing a pre-ulcerative lesion at the area of a significant exostosis at the plantar aspect of the hallux interphalangeal joint. We have attempted offloading, padding, changing in shoe gear and continues to have issues. We devised a plan to move forward with planing and removing of plantar prominence to allow for even weightbearing and hopefully preventing of any ulceration of the hallux. The patient is diabetic. I educated him there is the possibility of wound infection, delayed healing, need for more surgery at a later date. DESCRIPTION OF THE PROCEDURE IN DETAIL: Under mild sedation the patient was brought to the operating room, placed on the operative table in the supine position. Following the induction of general anesthesia, local anesthesia was attained about the hallux utilizing standard block fashion. The left foot was then scrubbed, prepped and draped in the usual aseptic fashion. The foot was elevated, exsanguinated and the previously placed midcalf tourniquet was inflated to 215 mmHg. A linear incision was made parallel to the weightbearing surface along the plantar aspect the hallux IPJ. Sharp and blunt dissection was carried down through superficial venous structures which were Bovie ligated as deemed necessary. Next a linear capsular incision was performed down to the periosteal surface. The flexor hallucis longus tendon was identified and retracted plantarly. The prominent condyles of the hallux IPJ were then transected utilizing power instrumentation to a flat contour. Bone was sent for pathological analysis and a culture was taken. The wound was then flushed with copious amounts of normal saline. Capsule was closed utilizing Vicryl. Skin was closed utilizing nylon. Upon relieving the tourniquet, there is a prompt hyperemic response to all digits without any delayed capillary refill time. A bulky bandage was placed. The patient was transferred from the operating room to the post-anesthesia care unit with all vital signs stable. He is heel transfer weight-bear only. He will follow up within three to five days. VIKKI Duffy/JENA /2:49 PM /8:42 AM
== END | disposition home or self-care (01) ==
LOC: ESDC 12:18
PROVIDERS: ATTEND Podiatrist Foot & Ankle Surgery
DX: M77.9 Enthesopathy, unspecified (principal); M25.775 Osteophyte, left foot
CPT/HCPCS: 01480; 28160; 87015; 87070; 87102; 87116; 87205; 87206; 88305; 88311; J0690; J1885; J2250; J2405; J3010; J7120